=== PATIENT | female | born 1955 ===

== ENCOUNTER 2016-09-01 22:22 | Inpatient (IN) | payer MEDICARE, OTHER ==
[2016-09-01] MEDS ORDERED: Barium Sulfate Susp 2.1% w/v, 2.0% w/w 450 mL Bottle PO ONE ×3 (22:50)
--- NOTE | 2016-09-01 22:54 | ED PDOC ---
HPI: Abdomen Time Seen by Provider: 09/01/16 22:45 Chief Complaint (Nursing): Abdominal Pain History Per: Patient (Diffuse abd pain since . Denies vomiting or diarrhea. Denies fever. Seen earlier at today. H/o ESRD last dialysis ) Onset/Duration Of Symptoms: Days (2) Current Symptoms Are (Timing): Still Present Severity: Moderate Pain Scale Rating Of: 3 Location Of Pain/Discomfort: Diffuse Quality Of Discomfort: Unable To Describe Associated Symptoms: denies: Urinary Symptoms Exacerbating Factors: None Alleviating Factors: None Past Medical History Vital Signs: Last Vital Signs Temp 97.6 F 09/02/16 08:11 Pulse 55 L 09/02/16 08:11 Resp 20 09/02/16 08:11 BP 187/81 H 09/02/16 08:11 Pulse Ox 99 09/02/16 08:11 - Medical History PMH: Anemia, Anxiety, Asthma, Bipolar Disorder, Bronchitis, CHF, COPD, Depression, Diabetes, Fractures, HTN, Hypercholesterolemia, Hyperlipidemia, Peripheral Edema, Pneumonia, End Stage Renal Disease (MWF), Chronic Kidney Disease, Schizophrenia Denies: HIV - Surgical History Surgical History: Appendectomy, Hernia Repair (unknown), Tonsillectomy, C- Section - Family History Family History: States: Unknown Family Hx - Immunization History Hx Tetanus Toxoid Vaccination: No Hx Influenza Vaccination: No Hx Pneumococcal Vaccination: No - Home Medications Home Medications: Ambulatory Orders Medication Instructions Recorded Aspirin [Ecotrin] 81 mg PO DAILY tabec 08/10/16 Bisoprolol [Zebeta] 5 mg PO DAILY tab 08/10/16 Sevelamer Carbonate [Renvela] 800 mg PO TID tab 08/10/16 Zolpidem [Ambien] 5 mg PO HS PRN #0 tab 08/10/16 amLODIPine [Norvasc] 5 mg PO DAILY tab 08/10/16 hydrALAZINE [Apresoline] 25 mg PO BID tab 08/10/16 risperiDONE [RisperDAL Tab] 0.5 mg PO Q8 tab 08/10/16 Pantoprazole Sodium [Protonix] 40 mg PO DAILY 09/02/16 cloNIDine [Catapres] 0.1 mg PO DAILY 09/02/16 - Allergies Allergies/Adverse Reactions: Allergies Allergy/AdvReac Type Severity Reaction Status Date / Time ciprofloxacin [From Cipro] Allergy RASH Verified 09/01/16 17:56 ciprofloxacin HCl Allergy RASH Verified 09/01/16 17:56 [From Cipro] shellfish derived Allergy RASH Verified 09/01/16 17:56 Review of Systems ROS Statement: Except As Marked, All Systems Reviewed And Found Negative Gastrointestinal: Positive for: Abdominal Pain Physical Exam - Reviewed Nursing Documentation Reviewed: Yes Vital Signs Reviewed: Yes - Physical Exam Appears: Positive for: Non-toxic, No Acute Distress Head Exam: Positive for: ATRAUMATIC, NORMAL INSPECTION, NORMOCEPHALIC Skin: Positive for: Normal Color, Warm, DRY Eye Exam: Positive for: EOMI, Normal appearance, PERRL ENT: Positive for: Normal ENT Inspection Neck: Positive for: Normal, Painless ROM Cardiovascular/Chest: Positive for: Regular Rate, Rhythm Respiratory: Positive for: CNT, Normal Breath Sounds Gastrointestinal/Abdominal: Positive for: Bowel Sounds, Soft, Tenderness (4 quads). Negative for: Guarding Back: Positive for: Normal Inspection Extremity: Positive for: Normal ROM Neurologic/Psych: Positive for: Alert, Oriented - Laboratory Results Result Diagrams: 09/01/16 00:11 09/01/16 00:11 Disposition - Clinical Impression Clinical Impression: Abdominal pain, ESRD (end stage renal disease), Gastroparesis - Patient ED Disposition Is Patient to be Admitted: Transfer of Care - Disposition Disposition: Transfer of Care Disposition Time: 00:00 Condition: FAIR Patient Signed Over To: Phoenix Brewer
[2016-09-01 23:55] LABS: VENOUS BLOOD GAS PCO2 84 mmHg (40-60); VENOUS BLOOD PH 7.08 (7.32-7.43)
[2016-09-02 00:18] LABS: BASO # 0.1 K/uL (0.0-0.2); BASO % 0.6 % (0.0-2.0); EOS # 0.1 K/uL (0.0-0.7); EOS % 0.8 % (0.0-4.0); HEMATOCRIT 27.1 % (34.0-47.0); LYMPH # 1.4 K/uL (1.0-4.3); LYMPH % 8.5 % (20.0-40.0); MEAN CELL VOLUME 94.4 fl (81.0-99.0); MEAN CORPUSCULAR HEMOGLOBIN 29.9 pg (27.0-31.0); MEAN CORPUSCULAR HGB CONC 31.7 g/dL (33.0-37.0); MEAN PLATELET VOLUME 9.1 fl (7.2-11.7); MONO % 6.1 % (0.0-10.0); NEUT # 13.5 K/uL (1.8-7.0); PLATELET COUNT 301 K/uL (130-400); WHITE BLOOD COUNT 16.1 K/uL (4.8-10.8)
[2016-09-02 00:28] LABS: ALB/GLOB RATIO 0.9 (1.0-2.1); BILIRUBIN,TOTAL 0.4 mg/dl (0.2-1.3); CALCIUM 9.2 mg/dL (8.4-10.2); POTASSIUM 4.6 MMOL/L (3.6-5.0); TOTAL PROTEIN 7.5 G/DL (6.3-8.2)
--- NOTE | 2016-09-02 01:39 | ED PDOC ---
- Laboratory Results Result Diagrams: 09/01/16 00:11 09/01/16 00:11 Medical Decision Making Medical Decision Making: Patient received from Dr New at 00:[address] Patient reports persistent abdominal discomfort and has vomited in ED. Given hx of gatsroparesis and 2nd ED visit in same evening, she will be admitted for further treatment as d/w Dr Michaud (covering Dr Thibodeaux) Dx Abdominal Pain, Gastroparesis, ESRD Fair Disposition - Clinical Impression Clinical Impression: Abdominal pain, ESRD (end stage renal disease), Gastroparesis - POA Present On Arrival: None - Disposition Disposition: Admitted as In-Patient Disposition Time: 01:00 Condition: FAIR
[2016-09-02 02:15] LABS: BASOPHIL 1 % (0-2); NEUTROPHIL 84 % (42-75); REACTIVE LYMPHOCYTES 2 % (0-0); TOTAL CELLS COUNTED 100
[2016-09-02 02:18] LABS: LARGE PLATELETS PRESENT
[2016-09-02] MEDS ORDERED: Sodium Chloride 3% for Inhalation 4 ML VIAL.NEB IH PRN (06:24)
[2016-09-02] MEDS: Insulin Regular 100 units/ml SC SCH ×4 (08:11→21:36)
--- NOTE | 2016-09-02 10:04 | CT ---
PROCEDURE: CT Abdomen and Pelvis with Oral contrast. HISTORY: abd pain COMPARISON: 11/27/2014 TECHNIQUE: Contiguous axial images of the abdomen and pelvis. Oral contrast was administered. No IV contrast given. Coronal and Sagittal reformats generated. Radiation dose: Total exam DLP = 847 mGy-cm. FINDINGS: LOWER THORAX: Small right pleural effusion is noted, decreased from prior study. Mild subsegmental atelectasis is also seen at the right lung base. Minimal dependent atelectasis is seen at the left lung base. Minor pericardial fluid is noted. Heart is moderately enlarged. Distal esophagus is on except for small hiatal hernia. LIVER: Lack of contrast limits evaluation. No focal new liver mass or intrahepatic ductal dilatation. Minimal low density seen anterior to the liver probably represents fat and not fluid. GALLBLADDER AND BILE DUCTS: There appears to be gallbladder wall thickening and/or pericholecystic fluid representing interval change from prior study. This may suggest cholecystitis. No gallstones are seen. The common bile duct is not well appreciated due the lack of contrast although does not appear to be dilated. PANCREAS: There is some mild haziness adjacent to the head of the pancreas and the duodenum. Mild amount of pancreatitis is not excluded. No focal peripancreatic collections is noted. SPLEEN: Unremarkable. No splenomegaly. ADRENALS: Unremarkable. KIDNEYS AND URETERS: No gross hydronephrosis is seen. Moderate perinephric changes are identified bilaterally as are noted on the prior study. A number of small nonobstructing calculi or vascular calcification are once again seen ureters are not significantly dilated. There may be some mild periureteral inflammatory changes adjacent to the distal right ureter. In addition there appears to be a few small calcifications in the distal right ureter, largest of which measures 4 millimeters on axial image 147. No left ureteral calculi are seen. BLADDER: Not significantly distended. No gross bladder wall thickening or bladder calculus is noted. REPRODUCTIVE: Chronic calcification within a normal size uterus. No gross adnexal masses. There is however some mild nonspecific ascites within the pelvis. APPENDIX: Appendix not well seen, however no appreciable pericecal inflammatory changes are identified. BOWEL: There is nonspecific thickening of portions of the right colon and hepatic flexure and proximal transverse colon. This may suggest colitis. Remainder of the colon shows no evidence of wall thickening or pericolonic inflammatory change. PERITONEUM: No small bowel dilatation is seen. No mesenteric thickening is identified. LYMPH NODES: A few small scattered nonspecific retroperitoneal lymph nodes are stable from prior study. No pelvic or inguinal adenopathy is seen although a few small scattered shotty inguinal nodes are noted. VASCULATURE: Aorta is normal in size and unchanged. BONES: Degenerative changes are seen in the spine. OTHER FINDINGS: There is moderate interval decrease in previously identified anasarca. Very small umbilical hernia and minor residual subcutaneous induration is identified in the periumbilical region, nonspecific. IMPRESSION: New areas of decreased density surrounding the gallbladder suggesting gallbladder wall thickening or fluid. Cholecystitis would be suspected in the correct clinical setting. There is also the suggestion of some possible mild inflammatory change in the head of the pancreas and duodenum which may suggest mild pancreatitis. Nonspecific thickening of the ascending colon and hepatic flexure region new from prior study. Nonspecific colitis is suspected. Possible distal right ureteral calculus without hydronephrosis. Nonspecific small amount of fluid in the pelvis and cul-de-sac region. Moderate chronic perinephric changes with small bilateral renal calculi are vascular calcification noted. Stable small retroperitoneal lymph nodes. Moderate decrease in previously seen anasarca. This agrees with preliminary report.
--- NOTE | 2016-09-02 10:35 | CP.PCM.CON ---
History of Present Illness - History of Present Illness History of Present Illness: PODIATRY CONSULT NOTE 60 y/o female seen at bedside for right foot plantar ulceration secondary to Charcot deformity. Pt is know to podiatry service for this issue. Pt reports pain to the extremity recently graded 2/10 localized to the area of her ulcertion as she had increased her ambulation activity prior to readmission. Patient denies pain in her foot today, pain only manifesting with ambulation. Patient denies any other acute events overnight. She denies n/f/v/d/c/sob. Past Patient History - Infectious Disease Hx of Infectious Diseases: None - Tetanus Immunizations Tetanus Immunization: Unknown - Past Medical History & Family History Past Medical History?: Yes - Past Social History Smoking Status: Never Smoked - CARDIAC Hx Cardiac Disorders: Yes Hx Congestive Heart Failure: Yes Hx Hypercholesterolemia: Yes Hx Hypertension: Yes Hx Peripheral Edema: Yes - PULMONARY Hx Respiratory Disorders: Yes Hx Asthma: Yes Hx Bronchitis: Yes Hx Chronic Obstructive Pulmonary Disease (COPD): Yes Hx Pneumonia: Yes - NEUROLOGICAL Hx Neurological Disorder: No - HEENT Hx HEENT Problems: Yes Other/Comment: uses reading glass - RENAL Hx Chronic Kidney Disease: Yes Hx Dialysis: Yes Type of Dialysis Access: AV shunt L arm Date of Last Dialysis Treatment: 08/31/16 Hx Kidney Stones: No Hx Neurogenic Bladder: No Hx Pyelonephritis: No Hx Renal (Kidney) Cancer: No Hx Renal Failure: Yes - ENDOCRINE/METABOLIC Hx Endocrine Disorders: Yes Hx Diabetes Mellitus Type 2: Yes - HEMATOLOGICAL/ONCOLOGICAL Hx Blood Disorders: Yes Hx Anemia: Yes Hx Human Immunodeficiency Virus (HIV): No - INTEGUMENTARY Hx Dermatological Problems: Yes Other/Comment: Right foot pressure ulcer - MUSCULOSKELETAL/RHEUMATOLOGICAL Hx Musculoskeletal Disorders: Yes Hx Falls: Yes - GASTROINTESTINAL Hx Gastrointestinal Disorders: Yes Other/Comment: Gastroparesis - GENITOURINARY/GYNECOLOGICAL Hx Genitourinary Disorders: Yes Hx Urinary Tract Infection: Yes - PSYCHIATRIC Hx Psychophysiologic Disorder: Yes Hx Anxiety: Yes Hx Bipolar Disorder: Yes Hx Depression: Yes Hx Schizophrenia: Yes Hx Substance Use: No - SURGICAL HISTORY Hx Surgeries: Yes Hx Appendectomy: Yes Hx Arteriovenous Shunt: Yes Hx Section: Yes Hx Herniorrhaphy: Yes Hx Tonsillectomy: Yes Hx Vascular Access Device: Yes - ANESTHESIA Hx Anesthesia: Yes Hx Anesthesia Reactions: No Hx Malignant Hyperthermia: No Has any member of the family had a problem w/ anesthesia?: No Meds Allergies/Adverse Reactions: Allergies Allergy/AdvReac Type Severity Reaction Status Date / Time ciprofloxacin [From Cipro] Allergy RASH Verified 09/01/16 17:56 ciprofloxacin HCl Allergy RASH Verified 09/01/16 17:56 [From Cipro] shellfish derived Allergy RASH Verified 09/01/16 17:56 - Medications Medications: Current Medications Heparin Sodium (Porcine) (Heparin) 5,000 units SC Q8 ASHOK PRN Reason: Protocol Last Admin: 09/02/16 08:11 Dose: 5,000 units Piperacillin Sod/Tazobactam (Sod 2.25 gm/ Sodium Chloride) 100 mls @ 100 mls/ hr IVPB Q8 ASHOK Last Admin: 09/02/16 10:28 Dose: 100 mls/hr Insulin Human Regular (Humulin R) 0 units SC ACHS ASHOK PRN Reason: Protocol Last Admin: 09/02/16 08:11 Dose: 2 units Metoclopramide HCl (Reglan) 10 mg IVPB Q6 PRN PRN Reason: Nausea/Vomiting Mupirocin (Bactroban Ointment) 1 applic TOP DAILY [facility] Last Admin: 09/02/16 08:10 Dose: 1 applic Physical Exam - Constitutional Appears: Well, Non-toxic, No Acute Distress - Extremities Exam Additional comments: Right foot exam: Dressing clean, dry, and intact. Derm: Right plantar foot wound noted measuring 1.3cm x 1cm x 0.3cm. with hyperkeratotic maria m-wound area. No undermining, post debridement. Localized induration and edema of maria m-wound border extending 2.5 cm circumferentially. Wound base is an 50% granular to 50% fibroitic base mix, no Probe to bone, no erythema, no purulence, no malodor. No active drainage present at this time. Vascular: DP/PT pulses 1/4, CFT<3 seconds, skin temp normal Neuro: Protective sensation grossly diminished Ortho: Right plantar foot Charcot deformity with rocker bottom presentation, and plantar bony prominence - Neurological Exam Neurological exam: Alert, Oriented x3 - Psychiatric Exam Psychiatric exam: Normal Affect, Normal Mood Results - Vital Signs Recent Vital Signs: Last Vital Signs Temp 97.6 F 09/02/16 08:11 Pulse 55 L 09/02/16 08:11 Resp 20 09/02/16 08:11 BP 187/81 H 09/02/16 08:11 Pulse Ox 99 09/02/16 08:11 - Labs Result Diagrams: 09/01/16 00:11 09/01/16 00:11 Labs: Laboratory Results - last 24 hr 09/02/16 05:48 POC Glucose (mg/dL) 201 H Assessment & Plan - Assessment and Plan (Free Text) Assessment: [age] year old female with Right foot plantar ulceration secondary to Charcot deformity. Plan: Patient seen and evaluated, discussed with attending Dr. Briseno. Labs and vitals reviewed; afebrile -Aseptic sharp excision debridement of fibrotic & hyperkeratotic tissue of right foot ulceration bed totaling 3cm^2. Wound base debrided down to level of bleeding subcutaneous tissue. -Right foot dressed with Bacitracin, DSD. Ordered Silvedene cream for future dressing changes. -IV abx per primary service. Podiatry will continue to follow while patient remains in house - Date & Time Date: 09/02/16 Time: 10:40
--- NOTE | 2016-09-02 10:44 | HP ---
CHIEF COMPLAINT: Abdominal pain. HISTORY OF PRESENT ILLNESS: This is a 60-year-old female, known case of diabetes, hypertension, anxi ety, asthma, bipolar disorder, CHF, COPD, depression, Charcot joint, elevated cholesterol and chronic foot ulcer, end-stage renal disease on dialysis and schizophrenia, who was having abdominal pain, fo r which patient went to Emergency Room at [facility] and was discharged, but patient continued h aving problem and was not able to hold any food down, was having vomiting and also patient felt very weak, so patient was brought to Emergency Room and was admitted for further management. REVIEW OF SYSTEMS: Positive for abdominal pain, nausea, vomiting and generalized body ache and gener alized weakness. Otherwise is negative for headache, dizziness, syncope, loss of consciousness, ches t pain, shortness of breath, any knee joint or extremity pain. All other organ systems unremarkable. PAST MEDICAL HISTORY: Significant for diabetes, hypertension, elevated cholesterol, bronchial asthma , bipolar disorder, schizophrenia, CHF, COPD, depression. PAST SURGICAL HISTORY: Unremarkable except appendectomy, hernia repair, tonsillectomy, dialysis rela valerie procedure and section. PERSONAL HISTORY: The patient is currently a nonsmoker, nondrinker, no substance abuse. MEDICATIONS: The patient is on multiple including Zemplar, Ecotrin, Dulcolax, Zebeta, Colace, Lexapr o, Protonix, Renvela, Ambien, Norvasc, Catapres, hydralazine, Risperdal. ALLERGIES: THE PATIENT IS ALLERGIC TO CIPRO AND SHELLFISH. FAMILY HISTORY: Noncontributory. PHYSICAL EXAMINATION: GENERAL: Well-built, well-nourished, overweight, 60-year-old female, in no acute distress. VITAL SIGNS: Temperature 97.6, pulse 55, respirations 18, blood pressure 187/81. HEENT: Pupils reacting to light. No JVD, no thyromegaly, no lymphadenopathy, no nystagmus. Normoce phalic, atraumatic skull. HEART: S1, S2 normal, regular. No significant murmur, gallop or rub is heard. LUNGS: Shows good bilateral air entry. No rales or rhonchi. ABDOMEN: Soft, nontender, no organomegaly, no fluid. Bowel sounds are plus. No sign of acute abdom en. No guarding, no rigidity, no rebound. EXTREMITIES: Right lower extremity, patient has a big chronic looking plantar sole, which seems to b e deep than it appears externally. There is no tenderness due to neuropathy, no clear sign of cellul itis outside. No edema, no calf swelling, no tenderness, no acute ischemia. CENTRAL NERVOUS SYSTEM: The patient is awake, responsive. There is no sign of any acute gross focal , motor or sensory neurological deficit. DIAGNOSTIC DATA: Available reviewed. WBC 16.1, hemoglobin 8.6, hematocrit 27.1, platelets 301. Jose Guadalupe ous blood gas is pH 7.08, pCO2 84, pO2 44, saturation is 68. Sodium , potassium 4.6, chloride 9 4, bicarbonate 26, BUN 38, creatinine . SMA-12 is unremarkable. Abdominal CAT scan is unremark able. EKG does not reveal acute ST-T changes. ADMITTING IMPRESSION: Abdominal pain, probably gastroparesis, infected right foot ulcer, cellulitis, rule out osteomyelitis, type 2 diabetes with hyperglycemia, hypertension, systolic congestive heart failure, chronic, chronic obstructive pulmonary disease, bronchial asthma, depression, bipolar disord er, schizophrenia. PLAN: As ordered. Case and plan discussed with patient. Thierno Michaud MD cc: [id number] TT: 09/02/2016 10:43:16 en
--- NOTE | 2016-09-02 13:37 | CP.PCM.CON ---
<Carri Chen - Last Filed: 09/02/16 13:50> History of Present Illness - History of Present Illness History of Present Illness: Gastroenterology Fellow/PGY4 Consult Note 60 year old female with history of Hypertension, Hyperlipidemia, ESRD on HD MWF , and right foot plantar ulceration secondary to Charcot deformity presenting with syncope and abdominal pain. Patient ang family endorse ER visit yesterday with diagnosis of constipation and discharge home. Upon walking into the home the patient fainted and was caught by family before hitting the floor. She states that upon awakening yesterday she weak and had mid epigastric, constant pain without radiation, pain scale 7/10. She associates five episodes of clear- white liquid vomitus. She ate a hamburger prior to onset of first episode of vomiting. Associated dysphagia and odynophagia. Recent Gastric emptying study normal. Had tolerated regular diet during last admission. At present tolerate clear liquid diet without recurrent vomiting. Denies hematemesis, acid reflux, indigestion, heartburn, bloating, diarrhea, melena, hematochezia, or weight loss. No prior EGD /colonoscopy. Family- brother: Throat cancer Social- denies tobacco, alcohol, illicit drug use Surgery- hernia repair, , tonsillectomy, appendectomy Review of Systems - Review of Systems Review of Systems: A 12-point review of systems negative except for as above Past Patient History - Infectious Disease Hx of Infectious Diseases: None - Tetanus Immunizations Tetanus Immunization: Unknown - Past Medical History & Family History Past Medical History?: Yes - Past Social History Smoking Status: Never Smoked - CARDIAC Hx Cardiac Disorders: Yes Hx Congestive Heart Failure: Yes Hx Hypercholesterolemia: Yes Hx Hypertension: Yes Hx Peripheral Edema: Yes - PULMONARY Hx Respiratory Disorders: Yes Hx Asthma: Yes Hx Bronchitis: Yes Hx Chronic Obstructive Pulmonary Disease (COPD): Yes Hx Pneumonia: Yes - NEUROLOGICAL Hx Neurological Disorder: No - HEENT Hx HEENT Problems: Yes Other/Comment: uses reading glass - RENAL Hx Chronic Kidney Disease: Yes Hx Dialysis: Yes Type of Dialysis Access: AV shunt L arm Date of Last Dialysis Treatment: 08/31/16 Hx Kidney Stones: No Hx Neurogenic Bladder: No Hx Pyelonephritis: No Hx Renal (Kidney) Cancer: No Hx Renal Failure: Yes - ENDOCRINE/METABOLIC Hx Endocrine Disorders: Yes Hx Diabetes Mellitus Type 2: Yes - HEMATOLOGICAL/ONCOLOGICAL Hx Blood Disorders: Yes Hx Anemia: Yes Hx Human Immunodeficiency Virus (HIV): No - INTEGUMENTARY Hx Dermatological Problems: Yes Other/Comment: Right foot pressure ulcer - MUSCULOSKELETAL/RHEUMATOLOGICAL Hx Musculoskeletal Disorders: Yes Hx Falls: Yes - GASTROINTESTINAL Hx Gastrointestinal Disorders: Yes Other/Comment: Gastroparesis - GENITOURINARY/GYNECOLOGICAL Hx Genitourinary Disorders: Yes Hx Urinary Tract Infection: Yes - PSYCHIATRIC Hx Psychophysiologic Disorder: Yes Hx Anxiety: Yes Hx Bipolar Disorder: Yes Hx Depression: Yes Hx Schizophrenia: Yes Hx Substance Use: No - SURGICAL HISTORY Hx Surgeries: Yes Hx Appendectomy: Yes Hx Arteriovenous Shunt: Yes Hx Section: Yes Hx Herniorrhaphy: Yes Hx Tonsillectomy: Yes Hx Vascular Access Device: Yes - ANESTHESIA Hx Anesthesia: Yes Hx Anesthesia Reactions: No Hx Malignant Hyperthermia: No Has any member of the family had a problem w/ anesthesia?: No Meds Allergies/Adverse Reactions: Allergies Allergy/AdvReac Type Severity Reaction Status Date / Time ciprofloxacin [From Cipro] Allergy RASH Verified 09/01/16 17:56 ciprofloxacin HCl Allergy RASH Verified 09/01/16 17:56 [From Cipro] shellfish derived Allergy RASH Verified 09/01/16 17:56 - Medications Medications: Current Medications Heparin Sodium (Porcine) (Heparin) 5,000 units SC Q8 [facility] PRN Reason: Protocol Last Admin: 09/02/16 08:11 Dose: 5,000 units Piperacillin Sod/Tazobactam (Sod 2.25 gm/ Sodium Chloride) 100 mls @ 100 mls/ hr IVPB Q8 [facility] Last Admin: 09/02/16 10:28 Dose: 100 mls/hr Insulin Human Regular (Humulin R) 0 units SC ACHS [facility] PRN Reason: Protocol Last Admin: 09/02/16 12:28 Dose: 2 units Metoclopramide HCl (Reglan) 10 mg IVPB Q6 PRN PRN Reason: Nausea/Vomiting Last Admin: 09/02/16 13:25 Dose: 10 mg Mupirocin (Bactroban Ointment) 1 applic TOP DAILY [facility] Last Admin: 09/02/16 08:10 Dose: 1 applic Physical Exam - Constitutional Appears: Non-toxic, No Acute Distress - Head Exam Head Exam: ATRAUMATIC, NORMOCEPHALIC - Eye Exam Eye Exam: EOMI Pupil Exam: absent: Miosis, Mydriatic - ENT Exam ENT Exam: Mucous Membranes Moist, Normal Oropharynx - Neck Exam Neck exam: Positive for: Full Rom, Normal Inspection - Respiratory Exam Respiratory Exam: Clear to Auscultation Bilateral, Rales. absent: Rhonchi, Wheezes - Cardiovascular Exam Cardiovascular Exam: RRR, +S1, +S2. absent: Gallop, Rubs - GI/Abdominal Exam GI & Abdominal Exam: Normal Bowel Sounds, Organomegaly, Soft, Tenderness. absent: Distended, Firm, Rebound, Rigid - Extremities Exam Extremities exam: Positive for: pedal edema - Neurological Exam Neurological exam: Alert - Psychiatric Exam Psychiatric exam: Normal Affect, Normal Mood - Skin Skin Exam: Dry, Intact, Normal Color, Warm Results - Vital Signs Recent Vital Signs: Last Vital Signs Temp 97.6 F 09/02/16 08:11 Pulse 55 L 09/02/16 08:11 Resp 20 09/02/16 08:11 BP 187/81 H 09/02/16 08:11 Pulse Ox 99 09/02/16 08:11 - Labs Result Diagrams: 09/01/16 00:11 09/01/16 00:11 Labs: Laboratory Results - last 24 hr 09/02/16 09/02/16 09/02/16 05:48 09:45 10:36 APTT 29.9 POC Glucose (mg/dL) 201 H 208 H Assessment & Plan - Assessment and Plan (Free Text) Assessment: 60 year old female with history of Hypertension, Hyperlipidemia, ESRD on HD MWF , recurrent UTIs, and right foot plantar ulceration secondary to Charcot deformity presenting with syncope and abdominal pain. Recent gastric emptying study 08/[address] A/P showing nonspecific thickening of gallbladder with pericholecystic fluid, duodenum, and transverse colon. No prior EGD /colonoscopy. Plan: >U/A- recurrent UTI >continue antibiotic treatment >tolerating clear liquid diet >ordered Hepatitis panel to evaluate LFTs >if recurrent vomiting or dysphagia/odynophagia will consider future endoscopic evaluation >monitor LFTs, WBC, and fever curve for concern of acalculous cholecytitis and mild pancreatitis on CT imaging >further recommendations as follow clinical course <Bg Fay MD - Last Filed: 09/02/16 14:06> Meds - Medications Medications: Current Medications Heparin Sodium (Porcine) (Heparin) 5,000 units SC Q8 [facility] PRN Reason: Protocol Last Admin: 09/02/16 08:11 Dose: 5,000 units Piperacillin Sod/Tazobactam (Sod 2.25 gm/ Sodium Chloride) 100 mls @ 100 mls/ hr IVPB Q8 [facility] Last Admin: 09/02/16 10:28 Dose: 100 mls/hr Insulin Human Regular (Humulin R) 0 units SC ACHS [facility] PRN Reason: Protocol Last Admin: 09/02/16 12:28 Dose: 2 units Metoclopramide HCl (Reglan) 10 mg IVPB Q6 PRN PRN Reason: Nausea/Vomiting Last Admin: 09/02/16 13:25 Dose: 10 mg Mupirocin (Bactroban Ointment) 1 applic TOP DAILY [facility] Last Admin: 09/02/16 08:10 Dose: 1 applic Results - Vital Signs Recent Vital Signs: Last Vital Signs Temp 97.6 F 09/02/16 08:11 Pulse 55 L 09/02/16 08:11 Resp 20 09/02/16 08:11 BP 187/81 H 09/02/16 08:11 Pulse Ox 99 09/02/16 08:11 - Labs Result Diagrams: 09/01/16 00:11 09/01/16 00:11 Labs: Laboratory Results - last 24 hr 09/02/16 09/02/16 09/02/16 05:48 09:45 10:36 APTT 29.9 POC Glucose (mg/dL) 201 H 208 H Attending/Attestation - Attestation I have personally seen and examined this patient.: Yes I have fully participated in the care of the patient.: Yes I have reviewed all pertinent clinical information: Yes Notes (Text): 09/02/16 14:03 Patient seen and examined at bedside with GI fellow. This is a 60 year old female with history of Hypertension, Hyperlipidemia, ESRD on HD MWF, recurrent UTIs, and right foot plantar ulceration secondary to Charcot deformity presenting with syncope and abdominal pain. Recent gastric emptying study 08/14 without gastroparesis. Abdominal pain likely multi factorial. CT A/P showing nonspecific thickening of gallbladder with pericholecystic fluid, duodenum, and transverse colon. U/A with UTI pending urine cultures. Will trend LFT, fever and wbc curve and continue antibiotics for UTI and acalculous GB. Tolerating clear liquid diet. Advance as tolerated. Daily PPI. Continue reglan prn
[2016-09-02] MEDS: Pantoprazole 40 mg EC Tab PO SCH (16:23)
[2016-09-03] MEDS: Insulin Regular 100 units/ml SC SCH ×4 (08:10→22:00)
[2016-09-03] MEDS: Pantoprazole 40 mg EC Tab PO SCH (08:11)
--- NOTE | 2016-09-03 09:39 | CARD ---
APPROVED REPORT EKG Measurement Heart [id number] <Conclusion> Sinus bradycardia Right superior axis deviation Anterior infarct, age undetermined Abnormal ECG
[2016-09-03 11:56] LABS: POTASSIUM 5.9 MMOL/L (3.6-5.0)
[2016-09-03 11:58] LABS: BILIRUBIN,TOTAL 0.6 mg/dl (0.2-1.3)
[2016-09-03 11:59] LABS: CALCIUM 8.7 mg/dL (8.4-10.2); TOTAL PROTEIN 7.1 G/DL (6.3-8.2)
[2016-09-03 12:12] LABS: BASO # 0.1 K/uL (0.0-0.2); BASO % 0.8 % (0.0-2.0); EOS # 0.2 K/uL (0.0-0.7); EOS % 1.9 % (0.0-4.0); HEMATOCRIT 29.5 % (34.0-47.0); LYMPH # 1.6 K/uL (1.0-4.3); LYMPH % 14.5 % (20.0-40.0); MEAN CELL VOLUME 95.1 fl (81.0-99.0); MEAN CORPUSCULAR HEMOGLOBIN 30.6 pg (27.0-31.0); MEAN CORPUSCULAR HGB CONC 32.2 g/dL (33.0-37.0); MONO # 0.7 K/uL (0.0-0.8); MONO % 6.4 % (0.0-10.0); NEUT # 8.3 K/uL (1.8-7.0); NEUT % 76.4 % (50.0-75.0); NRBC % 0.1 % (0.0-0.0); RED CELL DISTRIBUTION WIDTH 16.7 % (11.5-14.5); WHITE BLOOD COUNT 10.9 K/uL (4.8-10.8)
[2016-09-03] MEDS ORDERED: Sod Polystyrene Sulf 15 gm/60 ml Oral Susp PO ONE (12:28)
[2016-09-03] MEDS ORDERED: Epoetin Alfa 20000 UNIT/ML (RENAL DOSE) IV SCH (15:00)
[2016-09-03] MEDS ORDERED: Doxercalciferol 4 mcg/2 ml Inj IV SCH (15:00)
--- NOTE | 2016-09-03 17:35 | CP.PCM.PN ---
<Migel Russo - Last Filed: 09/03/16 17:33> Subjective - Date & Time of Evaluation Date of Evaluation: 09/03/16 Time of Evaluation: 12:00 - Subjective Subjective: PGY4 GI Fellow Progress Note Patient seen and examined bedside this morning. The patient admits to feeling much better today and is eager to eat more. Requesting regular diet. No issues overnight. 12 system ROS performed and negative except where stated. Objective - Vital Signs/Intake and Output Vital Signs (last 24 hours): Temp Pulse Resp BP Pulse Ox 97.4 F L 58 L 20 133/70 93 L 09/03/16 07:55 09/03/16 07:55 09/03/16 07:55 09/03/16 07:55 09/03/16 07:55 - Medications Medications: Current Medications Amlodipine Besylate (Norvasc) 5 mg PO DAILY [facility] Last Admin: 09/03/16 08:11 Dose: Not Given Aspirin (Ecotrin) 81 mg PO DAILY [facility] Last Admin: 09/03/16 08:10 Dose: 81 mg Bisoprolol Fumarate (Zebeta) 5 mg PO DAILY [facility] Last Admin: 09/03/16 08:12 Dose: Not Given Clonidine HCl (Catapres) 0.1 mg PO DAILY [facility] Last Admin: 09/03/16 08:09 Dose: Not Given Doxercalciferol (Hectorol) 2 mcg IV F [facility] Stop: 09/10/16 23:59 Epoetin Isreal (Procrit) 10,000 unit IV MWF [facility] Stop: 09/10/16 23:59 Heparin Sodium (Porcine) (Heparin) 5,000 units SC Q8 [facility] PRN Reason: Protocol Last Admin: 09/03/16 08:08 Dose: 5,000 units Hydralazine HCl (Apresoline) 25 mg PO BID [facility] Last Admin: 09/03/16 08:09 Dose: Not Given Piperacillin Sod/Tazobactam (Sod 2.25 gm/ Sodium Chloride) 100 mls @ 100 mls/ hr IVPB Q8 [facility] Last Admin: 09/03/16 08:12 Dose: 100 mls/hr Insulin Human Regular (Humulin R) 0 units SC ACHS [facility] PRN Reason: Protocol Last Admin: 09/03/16 12:12 Dose: 2 units Metoclopramide HCl (Reglan) 10 mg IVPB Q6 PRN PRN Reason: Nausea/Vomiting Last Admin: 09/03/16 09:03 Dose: 10 mg Mupirocin (Bactroban Ointment) 1 applic TOP DAILY [facility] Last Admin: 09/03/16 08:09 Dose: 1 applic Pantoprazole Sodium (Protonix Ec Tab) 40 mg PO DAILY [facility] Last Admin: 09/03/16 08:11 Dose: 40 mg Risperidone (Risperdal Tab) 0.5 mg PO Q8 [facility] Last Admin: 09/03/16 08:10 Dose: 0.5 mg Sevelamer HCl (Renagel) 800 mg PO TID [facility] Last Admin: 09/03/16 12:18 Dose: Not Given Zolpidem Tartrate (Ambien) 5 mg PO HS PRN PRN Reason: Insomnia - Labs Labs: 09/03/16 11:30 09/03/16 11:30 APTT 29.9 SECONDS (23.3-32.5) 09/02/16 09:45 - Constitutional Appears: Non-toxic, No Acute Distress - Eye Exam Eye Exam: EOMI, PERRL - ENT Exam ENT Exam: Mucous Membranes Moist - Respiratory Exam Respiratory Exam: Clear to Ausculation Bilateral. absent: Rales, Rhonchi, Wheezes - Cardiovascular Exam Cardiovascular Exam: RRR, +S1, +S2 - GI/Abdominal Exam GI & Abdominal Exam: Soft, Normal Bowel Sounds. absent: Distended, Firm, Guarding, Rigid, Tenderness, Organomegaly - Extremities Exam Extremities Exam: absent: Pedal Edema Additional comments: right foot wound dressing changed - Neurological Exam Neurological Exam: Alert, Awake, Oriented x3 - Psychiatric Exam Psychiatric exam: Normal Affect, Normal Mood - Skin Skin Exam: Dry, Warm Assessment and Plan - Assessment and Plan (Free Text) Assessment: 60 year old female with history of Hypertension, Hyperlipidemia, ESRD on HD MWF , recurrent UTIs, and right foot plantar ulceration secondary to Charcot deformity presenting with syncope and abdominal pain. -Epigastric pain -Nausea and vomiting Plan: -Suspect abdominal pain related to recurrent UTI -Tolerating diet, advance as tolerated -Hepatitis serologies pending -Asymptomatic at present; will sign off. Thank you for allowing us to participate in the care of your patient. <Bg Fay MD - Last Filed: 09/03/16 20:22> Objective - Vital Signs/Intake and Output Vital Signs (last 24 hours): Temp Pulse Resp BP Pulse Ox 97.4 F L 58 L 20 133/70 93 L 09/03/16 07:55 09/03/16 07:55 09/03/16 07:55 09/03/16 07:55 09/03/16 07:55 - Medications Medications: Current Medications Amlodipine Besylate (Norvasc) 5 mg PO DAILY [facility] Last Admin: 09/03/16 08:11 Dose: Not Given Aspirin (Ecotrin) 81 mg PO DAILY [facility] Last Admin: 09/03/16 08:10 Dose: 81 mg Bisoprolol Fumarate (Zebeta) 5 mg PO DAILY [facility] Last Admin: 09/03/16 08:12 Dose: Not Given Clonidine HCl (Catapres) 0.1 mg PO DAILY [facility] Last Admin: 09/03/16 08:09 Dose: Not Given Doxercalciferol (Hectorol) 2 mcg IV [facility] Epoetin Isreal (Procrit) 10,000 unit IV [facility] Stop: 09/10/16 23:59 Heparin Sodium (Porcine) (Heparin) 5,000 units SC Q8 [facility] PRN Reason: Protocol Last Admin: 09/03/16 18:32 Dose: 5,000 units Hydralazine HCl (Apresoline) 25 mg PO BID [facility] Last Admin: 09/03/16 18:31 Dose: Not Given Piperacillin Sod/Tazobactam (Sod 2.25 gm/ Sodium Chloride) 100 mls @ 100 mls/ hr IVPB Q8 [facility] Last Admin: 09/03/16 17:40 Dose: 100 mls/hr Insulin Human Regular (Humulin R) 0 units SC ACHS [facility] PRN Reason: Protocol Last Admin: 09/03/16 18:34 Dose: Not Given Metoclopramide HCl (Reglan) 10 mg IVPB Q6 PRN PRN Reason: Nausea/Vomiting Last Admin: 09/03/16 09:03 Dose: 10 mg Mupirocin (Bactroban Ointment) 1 applic TOP DAILY [facility] Last Admin: 09/03/16 08:09 Dose: 1 applic Pantoprazole Sodium (Protonix Ec Tab) 40 mg PO DAILY [facility] Last Admin: 09/03/16 08:11 Dose: 40 mg Risperidone (Risperdal Tab) 0.5 mg PO Q8 [facility] Last Admin: 09/03/16 18:35 Dose: Not Given Sevelamer HCl (Renagel) 800 mg PO TID [facility] Last Admin: 09/03/16 18:34 Dose: Not Given Zolpidem Tartrate (Ambien) 5 mg PO HS PRN PRN Reason: Insomnia - Labs Labs: 09/03/16 11:30 09/03/16 11:30 APTT 29.9 SECONDS (23.3-32.5) 09/02/16 09:45 Attending/Attestation - Attestation I have personally seen and examined this patient.: Yes I have fully participated in the care of the patient.: Yes I have reviewed all pertinent clinical information, including history, physical exam and plan: Yes Notes (Text): 09/03/16 20:20 patient seen and examined with GI fellow on rounds. This is a 60 year old female with history of Hypertension, Hyperlipidemia, ESRD on HD MWF, recurrent UTIs, and right foot plantar ulceration secondary to Charcot deformity presenting with syncope and abdominal pain. Abdominal pain likely due to recurrent UTI now resolving. Tolerating diet on PPI, carafate. -Asymptomatic at present; will sign off. Thank you for allowing us to participate in the care of your patient.
--- NOTE | 2016-09-03 20:05 | CP.PCM.PN ---
Subjective - Date & Time of Evaluation Date of Evaluation: 09/03/16 Time of Evaluation: 20:04 - Subjective Subjective: pt seen and examined, follow up consult is dictated #[id number] s/p hd today Objective - Vital Signs/Intake and Output Vital Signs (last 24 hours): Temp Pulse Resp BP Pulse Ox 97.4 F L 58 L 20 133/70 93 L 09/03/16 07:55 09/03/16 07:55 09/03/16 07:55 09/03/16 07:55 09/03/16 07:55 - Medications Medications: Current Medications Amlodipine Besylate (Norvasc) 5 mg PO DAILY [facility] Last Admin: 09/03/16 08:11 Dose: Not Given Aspirin (Ecotrin) 81 mg PO DAILY [facility] Last Admin: 09/03/16 08:10 Dose: 81 mg Bisoprolol Fumarate (Zebeta) 5 mg PO DAILY [facility] Last Admin: 09/03/16 08:12 Dose: Not Given Clonidine HCl (Catapres) 0.1 mg PO DAILY [facility] Last Admin: 09/03/16 08:09 Dose: Not Given Doxercalciferol (Hectorol) 2 mcg IV [facility] Epoetin Isreal (Procrit) 10,000 unit IV MWF [facility] Stop: 09/10/16 23:59 Heparin Sodium (Porcine) (Heparin) 5,000 units SC Q8 [facility] PRN Reason: Protocol Last Admin: 09/03/16 18:32 Dose: 5,000 units Hydralazine HCl (Apresoline) 25 mg PO BID [facility] Last Admin: 09/03/16 18:31 Dose: Not Given Piperacillin Sod/Tazobactam (Sod 2.25 gm/ Sodium Chloride) 100 mls @ 100 mls/ hr IVPB Q8 [facility] Last Admin: 09/03/16 17:40 Dose: 100 mls/hr Insulin Human Regular (Humulin R) 0 units SC ACHS [facility] PRN Reason: Protocol Last Admin: 09/03/16 18:34 Dose: Not Given Metoclopramide HCl (Reglan) 10 mg IVPB Q6 PRN PRN Reason: Nausea/Vomiting Last Admin: 09/03/16 09:03 Dose: 10 mg Mupirocin (Bactroban Ointment) 1 applic TOP DAILY [facility] Last Admin: 09/03/16 08:09 Dose: 1 applic Pantoprazole Sodium (Protonix Ec Tab) 40 mg PO DAILY [facility] Last Admin: 09/03/16 08:11 Dose: 40 mg Risperidone (Risperdal Tab) 0.5 mg PO Q8 [facility] Last Admin: 09/03/16 18:35 Dose: Not Given Sevelamer HCl (Renagel) 800 mg PO TID [facility] Last Admin: 09/03/16 18:34 Dose: Not Given Zolpidem Tartrate (Ambien) 5 mg PO HS PRN PRN Reason: Insomnia - Labs Labs: 09/03/16 11:30 09/03/16 11:30 APTT 29.9 SECONDS (23.3-32.5) 09/02/16 09:45
--- NOTE | 2016-09-03 20:49 | PN ---
DATE: 09/03/2016 The patient is located in room 655, bed 2. REQUESTED BY: Dr. Thierno Michaud. REASON FOR FOLLOWUP: End-stage renal disease, abdominal pain, possible urosepsis , for continuation of hemodialysis. HISTORY OF PRESENT ILLNESS: The patient is a 60-year-old elderly female with a past medical history significant for longstanding hypertension, diabetes, end-stage renal disease, psych disorder and Charcot's foot on the right lower extremity, recurrent urinary tract infection, sepsis, who was admitted about a week ago to [facility] for possible UTI. Subsequently discharged home. Now patient was admitted through the Emergency Room with chief complaints of nausea, vomiting x 5 and passed out in the house, and also complains of lower abdominal pain, dysuria and frequency. The urine culture is positive for gram-negative rods. The patient underwent hemodialysis this afternoon and had ultrafiltration about 2.5 liters, tolerating hemodialysis without any complications. The patient is feeling much better, not in acute distress. Denies any headache, dizziness. Denies any chest pain, palpitation. No nausea, vomiting today. PHYSICAL EXAMINATION: VITAL SIGNS: As follows: Blood pressure 133/70, pulse 58, respirations 20, temperature 97.4, saturation 93%. Height 5 feet 3 inches and weight is 162 pounds. GENERAL: The patient is a 60-year-old elderly female, moderately built , moderately nourished, not in acute distress. HEENT: Pupils normal reactive to light and accommodation. Conjunctivae pink. Sclerae anicteric. Tongue is moist. NECK: Trachea is midline. LUNGS: Symmetric on both sides. Bilateral breath sounds present. Clear on auscultation. CARDIOVASCULAR: [place] in the fifth intercostal space midclavicular line. S1 and S2 audible. No murmur or gallop. ABDOMEN: Normal in appearance. Soft, tympanic. Mild to moderate lower abdominal tenderness present, suprapubic. No guarding, no rigidity. No hepatosplenomegaly. CENTRAL NERVOUS SYSTEM: The patient is alert, awake, oriented x 3, nonfocal on examination. Cranial nerves II through XII grossly intact. Sensory and motor system is within normal limits. EXTREMITIES: No cyanosis, no clubbing, no edema. Right foot is swollen. The patient has a dressing to the right foot. CURRENT MEDICATIONS: Include as follows: Ambien 5 mg at bedtime, hydralazine 25 mg p.o. b.i.d., Bactroban ointment topical daily, Catapres 0.1 mg p.o. daily , Ecotrin 81 mg p.o. daily, Hectorol 2 mcg IV MWF, subcutaneous heparin 5000 q. 8 hours, milrinone for sliding scale, Norvasc 5 mg daily, Zosyn 2.25 grams IV q. 8 hours, Procrit 10,000 units MWF, Protonix 40 mg subQ daily, Reglan 10 mg IV q. 6 hours, Renagel 800 mg p.o. t.i.d., Risperdal 0.5 mg p.o. q. 8 hours, Zebeta 5 mg p.o. daily. LABORATORY DATA: Include as follows: As of 09/03/2016: WBC 10.9, hemoglobin 9.5, hematocrit is 29.5, platelets 283. Sodium 130, potassium 5.9, chloride 94 , CO2 21, BUN 50, creatinine 6.7 and glucose 205, calcium 8.5, total bilirubin 0.6, AST 31, ALT 36, alkaline phosphatase 260, total protein 7.1, albumin is 3.5. As of 09/01/2016: WBC 16.1, hemoglobin 8.6, hematocrit is 27.1, platelets 301. Neutrophils 84, lymphocytes 7, monocytes 6, and basophils 1. Blood culture x 1 is negative day #1 and urine culture positive for gram-negative rods , identification is pending as of 09/01/2016. SUMMARY: The patient is a 60-year-old elderly female with a history of hypertension, diabetes, recurrent urinary tract infections, questionable neurogenic bladder, Charcot's foot, end-stage renal disease, status post treatment for urinary tract infection, was admitted with nausea, vomiting, abdominal pain, and urine culture is positive for gram-negative rods. 1. End-stage renal disease. Continue hemodialysis 3 times a week, Saturday, Saturday and Saturday. 2. Hyperkalemia, most likely secondary to end-stage renal disease and noncompliance with medication. 3. Urinary tract infection. 4. Hypertension. Blood pressure is stable. Continue her current medications and follow up urine culture and sensitivity and adjust antibiotics as per PMD. Thank you for allowing me to participate in your patient's care. Lnida Bernal MD cc: [id number] TT: 09/03/2016 20:48:44 Confirmation # [id number] Dictation # [id number] rn MTDD
[2016-09-04] MEDS: Insulin Regular 100 units/ml SC SCH ×4 (06:51→22:02)
[2016-09-04] MEDS: Pantoprazole 40 mg EC Tab PO SCH (09:09)
--- NOTE | 2016-09-04 11:05 | US ---
HISTORY: Abdominal pain, ? cholecystitis COMPARISON: None. TECHNIQUE: Sonographic evaluation of the abdomen. FINDINGS: LIVER: Measures 17.8 cm. Normal echogenicity of the liver parenchyma. No mass. No intrahepatic bile duct dilatation. GALLBLADDER: No cholelithiasis. Mild diffuse mural thickening up to 4 mm. Minimal pericholecystic fluid common nonspecific. Negative sonographic Roe's sign. COMMON BILE DUCT: Measures 4 mm. No stones. No dilatation. PANCREAS: Unremarkable as visualized. No mass. No ductal dilatation. RIGHT KIDNEY: Measures 10.5cm. Normal echogenicity. No calculus, mass, or hydronephrosis. LEFT KIDNEY: Measures 10.3cm. Normal echogenicity. No calculus, mass, or hydronephrosis. SPLEEN: Normal in size and contour. No mass. AORTA: No aneurysmal dilatation. IVC: Unremarkable. OTHER FINDINGS: The small right pleural effusion. Trace pericardial effusion. IMPRESSION: Minimal hepatomegaly. Nonspecific thickening of gallbladder wall without evidence of cholelithiasis. Trace ascites. Right pleural effusion and minimal pericardial effusion.
--- NOTE | 2016-09-04 11:05 | PN ---
DATE: 09/04/2016 The patient seen and examined. Interim events noted. Consults noted and appreciated. The patient r emains on regular medical floor. The patient feels a little better, but still complains of generaliz ed weakness. No chest pain, shortness of breath or abdominal pain. The patient vomiting after eating yesterday, but otherwise patient tolerated diet. PHYSICAL EXAMINATION: GENERAL: The patient is in no acute distress. VITAL SIGNS: Stable. HEART: S1, S2 normal, regular. LUNGS: Good bilateral air exchange. ABDOMEN: Soft, nontender. There is no sign of acute abdomen. No guarding, no rigidity, no rebound. Bowel sounds are plus and normal. EXTREMITIES: No edema, no calf swelling, no tenderness, no acute . CENTRAL NERVOUS SYSTEM: Exam is essentially unchanged. DIAGNOSTIC DATA: Available diagnostic data reviewed. Overall, patient's general condition seems to be slowly improving. PLAN: As ordered. Thierno Michaud MD cc: [id number] TT: 09/04/2016 11:04:36 Confirmation # [id number] Dictation # [id number] tereso
[2016-09-04 12:00] LABS: HEMATOCRIT 28.5 % (34.0-47.0); MEAN CELL VOLUME 95.5 fl (81.0-99.0); MEAN CORPUSCULAR HEMOGLOBIN 29.6 pg (27.0-31.0); RED CELL DISTRIBUTION WIDTH 16.8 % (11.5-14.5); WHITE BLOOD COUNT 12.5 K/uL (4.8-10.8)
[2016-09-04 12:06] LABS: BILIRUBIN,TOTAL 0.6 mg/dl (0.2-1.3); CALCIUM 8.8 mg/dL (8.4-10.2); POTASSIUM 4.5 MMOL/L (3.6-5.0)
[2016-09-05] MEDS: Insulin Regular 100 units/ml SC SCH ×4 (07:55→22:00)
[2016-09-05 08:00] LABS: HEMATOCRIT 27.2 % (34.0-47.0); MEAN CELL VOLUME 94.8 fl (81.0-99.0); MEAN CORPUSCULAR HEMOGLOBIN 29.6 pg (27.0-31.0); MEAN CORPUSCULAR HGB CONC 31.2 g/dL (33.0-37.0); RED CELL DISTRIBUTION WIDTH 16.8 % (11.5-14.5); WHITE BLOOD COUNT 14.2 K/uL (4.8-10.8)
[2016-09-05 08:11] LABS: CALCIUM 8.8 mg/dL (8.4-10.2); POTASSIUM 4.7 MMOL/L (3.6-5.0)
[2016-09-05] MEDS ORDERED: EPOETIN ALFA 10,000 UNIT/ML ML IV SCH (09:00)
--- NOTE | 2016-09-05 09:04 | CP.PCM.PN ---
Subjective - Date & Time of Evaluation Date of Evaluation: 09/05/16 Time of Evaluation: 08:00 - Subjective Subjective: 60 y/o female seen at bedside this morning concerning right foot plantar ulceration secondary to Charcot deformity. Patient was resting comfortably in bed with no report of acute overnight distress. Dressing to Right foot remains clean, dry and intact. Patient denies any other acute events overnight. Patient states that she feels mild pain to the site of ulceration. She denies n/f/v/d/c/ sob. Objective - Vital Signs/Intake and Output Vital Signs (last 24 hours): Temp Pulse Resp BP Pulse Ox 98.1 F 62 20 151/80 H 100 09/05/16 07:54 09/05/16 07:54 09/05/16 07:54 09/05/16 07:54 09/05/16 07:54 - Medications Medications: Current Medications Amlodipine Besylate (Norvasc) 5 mg PO DAILY [facility] Last Admin: 09/04/16 09:10 Dose: 5 mg Aspirin (Ecotrin) 81 mg PO DAILY [facility] Last Admin: 09/04/16 09:08 Dose: 81 mg Bisoprolol Fumarate (Zebeta) 5 mg PO DAILY [facility] Last Admin: 09/04/16 09:08 Dose: 5 mg Clonidine HCl (Catapres) 0.1 mg PO DAILY [facility] Last Admin: 09/04/16 09:00 Dose: 0.1 mg Doxercalciferol (Hectorol) [address] [facility] Epoetin Isreal (Procrit) 10,000 unit IV F [facility] Stop: 09/10/16 23:59 Ferrous Sulfate (Feosol) 325 mg PO BIDWM [facility] Last Admin: 09/04/16 16:44 Dose: 325 mg Heparin Sodium (Porcine) (Heparin) 5,000 units SC Q8 [facility] PRN Reason: Protocol Last Admin: 09/05/16 01:49 Dose: 5,000 units Hydralazine HCl (Apresoline) 25 mg PO BID [facility] Last Admin: 09/04/16 16:43 Dose: 25 mg Tigecycline 50 mg/ Sodium (Chloride) 100 mls @ 100 mls/hr IVPB Q12@0200,1400 [facility] Last Admin: 09/05/16 01:49 Dose: 100 mls/hr Insulin Human Regular (Humulin R) 0 units SC ACHS [facility] PRN Reason: Protocol Last Admin: 09/05/16 07:55 Dose: 1 units Metoclopramide HCl (Reglan) 10 mg IVPB Q6 PRN PRN Reason: Nausea/Vomiting Last Admin: 09/03/16 09:03 Dose: 10 mg Mupirocin (Bactroban Ointment) 1 applic TOP DAILY [facility] Last Admin: 09/04/16 09:09 Dose: 1 applic Ondansetron HCl (Zofran Inj) 4 mg IVP Q8 PRN PRN Reason: Nausea/Vomiting Last Admin: 09/04/16 16:45 Dose: 4 mg Pantoprazole Sodium (Protonix Ec Tab) 40 mg PO DAILY [facility] Last Admin: 09/04/16 09:09 Dose: 40 mg Risperidone (Risperdal Tab) 0.5 mg PO Q8 [facility] Last Admin: 09/05/16 01:49 Dose: 0.5 mg Sevelamer HCl (Renagel) 800 mg PO TID [facility] Last Admin: 09/04/16 16:44 Dose: 800 mg Zolpidem Tartrate (Ambien) 5 mg PO HS PRN PRN Reason: Insomnia Last Admin: 09/04/16 22:33 Dose: 5 mg - Labs Labs: 09/05/16 07:55 09/05/16 07:55 APTT 29.9 SECONDS (23.3-32.5) 09/02/16 09:45 - Constitutional Appears: Well, Non-toxic, No Acute Distress - Extremities Exam Additional comments: Right foot exam: Dressing clean, dry, and intact. Derm: Open ulceration noted to plantar aspect of right midfoot measuring 1.3cm x 1cm x 0.3cm with 80fibrotic 20% granular base. No undermining. Localized hyperkeratotic tissue to maria m-wound border extending 2.5 cm circumferentially. no Probe to bone, no erythema, no purulence, no malodor. No active drainage present at this time. No erythema. No sign of infection is noted. Vascular: DP/PT pulses 1/4, CFT<3 seconds, skin temp normal Neuro: Protective sensation grossly diminished Ortho: Right plantar foot Charcot deformity with rocker bottom presentation, and plantar bony prominence - Neurological Exam Neurological Exam: Awake, Oriented x3 - Psychiatric Exam Psychiatric exam: Normal Affect, Normal Mood - Skin Skin Exam: Normal Color, Warm Assessment and Plan - Assessment and Plan (Free Text) Assessment: 60 year old female with Right foot plantar ulceration secondary to Charcot deformity. Plan: Patient seen and evaluated, discussed with attending Dr. Briseno. Labs and vitals reviewed; afebrile -Right foot dressed with DSD. Santyl vs Silvedene for dressing changes. -IV abx per primary service. Podiatry will continue to follow while patient remains in house
[2016-09-05] MEDS: Pantoprazole 40 mg EC Tab PO SCH (09:44)
[2016-09-05] MEDS: Doxercalciferol 4 mcg/2 ml Inj IV SCH (09:59)
[2016-09-05] MEDS: EPOETIN ALFA 10,000 UNIT/ML ML IV SCH (10:00)
--- NOTE | 2016-09-05 18:00 | CP.PCM.PN ---
Subjective - Date & Time of Evaluation Date of Evaluation: 09/05/16 Time of Evaluation: 17:59 - Subjective Subjective: pt seen and examined, follow up consult is dictated#[id number] stable hd tx Objective - Vital Signs/Intake and Output Vital Signs (last 24 hours): Temp Pulse Resp BP Pulse Ox 99.6 F 63 20 162/76 H 99 09/05/16 16:51 09/05/16 16:51 09/05/16 16:51 09/05/16 16:51 09/05/16 16:51 - Medications Medications: Current Medications Amlodipine Besylate (Norvasc) 5 mg PO DAILY [facility] Last Admin: 09/05/16 10:41 Dose: 5 mg Aspirin (Ecotrin) 81 mg PO DAILY [facility] Last Admin: 09/05/16 10:42 Dose: 81 mg Bisoprolol Fumarate (Zebeta) 5 mg PO DAILY [facility] Last Admin: 09/05/16 10:42 Dose: 5 mg Clonidine HCl (Catapres) 0.1 mg PO DAILY [facility] Last Admin: 09/05/16 10:12 Dose: 0.1 mg Doxercalciferol (Hectorol) 2 mcg IV F [facility] Last Admin: 09/05/16 09:59 Dose: 2 mcg Epoetin Isreal (Procrit) 10,000 unit IV F [facility] Stop: 09/10/16 23:59 Last Admin: 09/05/16 10:00 Dose: 10,000 unit Ferrous Sulfate (Feosol) 325 mg PO BIDWM [facility] Last Admin: 09/05/16 09:41 Dose: 325 mg Heparin Sodium (Porcine) (Heparin) 5,000 units SC Q8 [facility] PRN Reason: Protocol Last Admin: 09/05/16 09:41 Dose: Not Given Hydralazine HCl (Apresoline) 25 mg PO BID [facility] Last Admin: 09/05/16 10:39 Dose: 25 mg Tigecycline 50 mg/ Sodium (Chloride) 100 mls @ 100 mls/hr IVPB Q12@0200,1400 [facility] Last Admin: 09/05/16 14:28 Dose: 100 mls/hr Insulin Human Regular (Humulin R) 0 units SC ACHS [facility] PRN Reason: Protocol Last Admin: 09/05/16 12:33 Dose: 1 units Metoclopramide HCl (Reglan) 10 mg IVPB Q6 PRN PRN Reason: Nausea/Vomiting Last Admin: 09/03/16 09:03 Dose: 10 mg Mupirocin (Bactroban Ointment) 1 applic TOP DAILY [facility] Last Admin: 09/05/16 09:46 Dose: 1 applic Ondansetron HCl (Zofran Inj) 4 mg IVP Q8 PRN PRN Reason: Nausea/Vomiting Last Admin: 09/04/16 16:45 Dose: 4 mg Pantoprazole Sodium (Protonix Ec Tab) 40 mg PO DAILY [facility] Last Admin: 09/05/16 09:44 Dose: 40 mg Risperidone (Risperdal Tab) 0.5 mg PO Q8 [facility] Last Admin: 09/05/16 09:43 Dose: 0.5 mg Sevelamer HCl (Renagel) 800 mg PO TID [facility] Last Admin: 09/05/16 12:40 Dose: 800 mg Zolpidem Tartrate (Ambien) 5 mg PO HS PRN PRN Reason: Insomnia Last Admin: 09/04/16 22:33 Dose: 5 mg - Labs Labs: 09/05/16 07:55 09/05/16 07:55 APTT 29.9 SECONDS (23.3-32.5) 09/02/16 09:45
--- NOTE | 2016-09-05 18:25 | CP.PCM.CON ---
History of Present Illness - History of Present Illness History of Present Illness: 60 year old female presenting with syncope and abdominal pain. Found to aHave + blood c/s as well as MDRO urine Started on Tygacil IV PMH history of Hypertension, Hyperlipidemia, ESRD on HD MWF, and right foot plantar ulceration secondary to Charcot deformity Family- brother: Throat cancer Social- denies tobacco, alcohol, illicit drug use Surgery- hernia repair, , tonsillectomy, appendectomy Past Patient History - Infectious Disease Hx of Infectious Diseases: None - Tetanus Immunizations Tetanus Immunization: Unknown - Past Medical History & Family History Past Medical History?: Yes - Past Social History Smoking Status: Never Smoked - CARDIAC Hx Cardiac Disorders: Yes Hx Congestive Heart Failure: Yes Hx Hypercholesterolemia: Yes Hx Hypertension: Yes Hx Peripheral Edema: Yes - PULMONARY Hx Respiratory Disorders: Yes Hx Asthma: Yes Hx Bronchitis: Yes Hx Chronic Obstructive Pulmonary Disease (COPD): Yes Hx Pneumonia: Yes - NEUROLOGICAL Hx Neurological Disorder: No - HEENT Hx HEENT Problems: Yes Other/Comment: uses reading glass - RENAL Hx Chronic Kidney Disease: Yes Hx Dialysis: Yes Type of Dialysis Access: AV shunt L arm Date of Last Dialysis Treatment: 08/31/16 Hx Kidney Stones: No Hx Neurogenic Bladder: No Hx Pyelonephritis: No Hx Renal (Kidney) Cancer: No Hx Renal Failure: Yes - ENDOCRINE/METABOLIC Hx Endocrine Disorders: Yes Hx Diabetes Mellitus Type 2: Yes - HEMATOLOGICAL/ONCOLOGICAL Hx Blood Disorders: Yes Hx Anemia: Yes Hx Human Immunodeficiency Virus (HIV): No - INTEGUMENTARY Hx Dermatological Problems: Yes Other/Comment: Right foot pressure ulcer - MUSCULOSKELETAL/RHEUMATOLOGICAL Hx Musculoskeletal Disorders: Yes Hx Falls: Yes - GASTROINTESTINAL Hx Gastrointestinal Disorders: Yes Other/Comment: Gastroparesis - GENITOURINARY/GYNECOLOGICAL Hx Genitourinary Disorders: Yes Hx Urinary Tract Infection: Yes - PSYCHIATRIC Hx Psychophysiologic Disorder: Yes Hx Anxiety: Yes Hx Bipolar Disorder: Yes Hx Depression: Yes Hx Schizophrenia: Yes Hx Substance Use: No - SURGICAL HISTORY Hx Surgeries: Yes Hx Appendectomy: Yes Hx Arteriovenous Shunt: Yes Hx Section: Yes Hx Herniorrhaphy: Yes Hx Tonsillectomy: Yes Hx Vascular Access Device: Yes - ANESTHESIA Hx Anesthesia: Yes Hx Anesthesia Reactions: No Hx Malignant Hyperthermia: No Has any member of the family had a problem w/ anesthesia?: No Meds Allergies/Adverse Reactions: Allergies Allergy/AdvReac Type Severity Reaction Status Date / Time ciprofloxacin [From Cipro] Allergy RASH Verified 09/01/16 17:56 ciprofloxacin HCl Allergy RASH Verified 09/01/16 17:56 [From Cipro] shellfish derived Allergy RASH Verified 09/01/16 17:56 - Medications Medications: Current Medications Amlodipine Besylate (Norvasc) 5 mg PO DAILY [facility] Last Admin: 09/05/16 10:41 Dose: 5 mg Aspirin (Ecotrin) 81 mg PO DAILY [facility] Last Admin: 09/05/16 10:42 Dose: 81 mg Bisoprolol Fumarate (Zebeta) 5 mg PO DAILY [facility] Last Admin: 09/05/16 10:42 Dose: 5 mg Clonidine HCl (Catapres) 0.1 mg PO DAILY [facility] Last Admin: 09/05/16 10:12 Dose: 0.1 mg Doxercalciferol (Hectorol) 2 mcg IV [facility] Last Admin: 09/05/16 09:59 Dose: 2 mcg Epoetin Isreal (Procrit) 10,000 unit IV [facility] Stop: 09/10/16 23:59 Last Admin: 09/05/16 10:00 Dose: 10,000 unit Ferrous Sulfate (Feosol) 325 mg PO BIDWM [facility] Last Admin: 09/05/16 09:41 Dose: 325 mg Heparin Sodium (Porcine) (Heparin) 5,000 units SC Q8 [facility] PRN Reason: Protocol Last Admin: 09/05/16 09:41 Dose: Not Given Hydralazine HCl (Apresoline) 25 mg PO BID [facility] Last Admin: 09/05/16 10:39 Dose: 25 mg Tigecycline 50 mg/ Sodium (Chloride) 100 mls @ 100 mls/hr IVPB Q12@0200,1400 [facility] Last Admin: 09/05/16 14:28 Dose: 100 mls/hr Insulin Human Regular (Humulin R) 0 units SC ACHS [facility] PRN Reason: Protocol Last Admin: 09/05/16 12:33 Dose: 1 units Metoclopramide HCl (Reglan) 10 mg IVPB Q6 PRN PRN Reason: Nausea/Vomiting Last Admin: 09/03/16 09:03 Dose: 10 mg Mupirocin (Bactroban Ointment) 1 applic TOP DAILY [facility] Last Admin: 09/05/16 09:46 Dose: 1 applic Ondansetron HCl (Zofran Inj) 4 mg IVP Q8 PRN PRN Reason: Nausea/Vomiting Last Admin: 09/04/16 16:45 Dose: 4 mg Pantoprazole Sodium (Protonix Ec Tab) 40 mg PO DAILY [facility] Last Admin: 09/05/16 09:44 Dose: 40 mg Risperidone (Risperdal Tab) 0.5 mg PO Q8 [facility] Last Admin: 09/05/16 09:43 Dose: 0.5 mg Sevelamer HCl (Renagel) 800 mg PO TID [facility] Last Admin: 09/05/16 12:40 Dose: 800 mg Zolpidem Tartrate (Ambien) 5 mg PO HS PRN PRN Reason: Insomnia Last Admin: 09/04/16 22:33 Dose: 5 mg Results - Vital Signs Recent Vital Signs: Last Vital Signs Temp 99.6 F 09/05/16 16:51 Pulse 63 09/05/16 16:51 Resp 20 09/05/16 16:51 BP 162/76 H 09/05/16 16:51 Pulse Ox 99 09/05/16 16:51 - Labs Result Diagrams: 09/05/16 07:55 09/05/16 07:55 Labs: Laboratory Results - last 24 hr 09/04/16 09/05/16 09/05/16 21:58 06:12 07:55 WBC 14.2 H RBC 2.87 L Hgb 8.5 L Hct 27.2 L MCV 94.8 MCH 29.6 MCHC 31.2 L RDW 16.8 H Plt Count 279 Sodium 132 Potassium 4.7 Chloride 96 L Carbon Dioxide 25 Anion Gap 16 BUN 43 H Creatinine 5.5 H Est GFR ( Amer) 10 Est GFR (Non-Af Amer) 8 POC Glucose (mg/dL) 199 H 160 H Random Glucose 152 H Calcium 8.8 09/05/16 09/05/16 11:04 16:28 WBC RBC Hgb Hct MCV MCH MCHC RDW Plt Count Sodium Potassium Chloride Carbon Dioxide Anion Gap BUN Creatinine Est GFR ( Amer) Est GFR (Non-Af Amer) POC Glucose (mg/dL) 169 H 77 Random Glucose Calcium
--- NOTE | 2016-09-05 19:00 | NM ---
PROCEDURE: Radionuclide hepatobiliary scan HISTORY: Gallstones COMPARISON: Not available TECHNIQUE: Following the intravenous administration of 5.6 MCi of technetium 99 M Choletec, sequential anterior images of the abdomen were obtained out to 105 minutes. FINDINGS: There is normal uptake and excretion of the radiopharmaceutical by the liver. The gallbladder is visualized by 5 minutes. There is no evidence of intrahepatic biliary dilatation. Bowel is visualized at 90 minutes post administration. IMPRESSION: No evidence of cystic duct or common bile duct obstruction.
--- NOTE | 2016-09-05 23:53 | PN ---
DATE: 09/05/2016 The patient is located in room 655, bed 2. HISTORY OF PRESENT ILLNESS: The patient is a 60-year-old elderly female with a past medical history significant for longstanding hypertension, diabetes, psych disorder, end-stage renal disease, Charcot 's foot, recurrent UTI, and questionable neurogenic bladder, was admitted with chief complaints of fe samara, chills, and dysuria, who was recently admitted to [facility] and treated for UTI, and now r eadmitted to [facility] with not feeling well, weakness, and dysuria. The madeline rios was found to have a urine culture positive for gram-negative rods. Blood culture is positive f or gram-positive cocci and Staph aureus, coag negative, and also urine culture positive for Klebsiell a pneumoniae. The patient is not in acute distress and denies any headache or dizziness. Denies any chest pain or palpitations. Denies any fever or cough. The patient underwent hemodialysis without any complications. PHYSICAL EXAMINATION: VITAL SIGNS: As follows: Blood pressure 162/76, pulse 63, respirations 20, temperature 99.6. GENERAL: The patient is a 60-year-old elderly female, moderately built, moderately nourished, not in acute distress. HEENT: Pupils normal reactive to light and accommodation. Conjunctivae pink. Sclerae anicteric. T ongue is moist. NECK: Trachea midline. LUNGS: Symmetric on both sides. Bilateral breath sounds present. Clear on auscultation. CARDIOVASCULAR: [place] in the fifth intercostal space, midclavicular line. S1, S2 audible. No murmur or gallop. ABDOMEN: Slightly protuberant, soft, tympanic. No guarding, no rigidity, no hepatosplenomegaly. CENTRAL NERVOUS SYSTEM: The patient is alert, awake, oriented x 3, nonfocal on examination. Cranial nerves II-XII grossly intact. Sensory and motor system is within normal limits. EXTREMITIES: No cyanosis, no clubbing, no edema on the left side. The patient has a dressing to the right foot. CURRENT MEDICATIONS: Include as follows: Ambien 5 mg at bedtime, hydralazine 25 mg p.o. b.i.d., Ba ctroban ointment topical daily, Catapres 0.1 mg p.o. daily, Ecotrin 81 mg daily, Feosol 325 mg p.o. b .i.d., subcutaneous heparin 5000 q. 8 hours, Symlin R for sliding scale, Norvasc 5 mg daily, Procrit 10,000 units 3 times a week, Saturday, Saturday, Saturday, Protonix 40 mg p.o. daily, Reglan 10 mg IV q. 6 hours, Renagel 800 mg p.o. t.i.d., risperidone 0.5 mg p.o. q. 8 hours, tigecycline 50 mg IV piggyb ack, bisoprolol 5 mg p.o. daily, and Zofran 4 mg IV q. 8 hours. LABORATORY DATA: Include as follows as of 09/05/2016: WBC 14.2, hemoglobin 8.5, hematocrit 27.2, shaheen telets 275. Sodium 132, potassium 4.7, chloride 96, CO2 25, BUN 43, creatinine 5.5, glucose 152, twila cium 8.8. Urine culture positive for Klebsiella pneumoniae as of 09/01/2016, and blood culture positi ve for Staph aureus coag-negative as of 09/01/2016 x 1. HIDA scan: No evidence of cystic duct and co mmon bile duct obstruction. As of 09/03/2016, abdominal ultrasound, minimal hepatomegaly, nonspecific thickening of the gallbladder wall without evidence of cholelithiasis, trace ascites, right pleural effusion, and minimal pericardial effusion. SUMMARY: The patient is a 60-year-old elderly female with a history of longstanding hyperte nsion, diabetes, end-stage renal disease, psych disorder, with a Charcot foot, who was admitted with dysuria, frequency, weakness, and found to have gram-negative rods in the urine, identified with Kleb siella pneumoniae, and blood culture x 1 is positive for Staphylococcus coagulase-negative. 1. End-stage renal disease: Continue hemodialysis 3 times a week, Saturday, Saturday, and Saturday; st able hemodialysis treatment today. 2. Hypertension. 3. Urinary tract infection. 4. Staphylococcus coagulase-negative sepsis. Continue antibiotics as per ID, tigecycline. 5. Continue Procrit, Zemplar, Renagel, Nephro-Brit. We will follow with you. Thank you for allowing me to participate in your patient's care. Linda Bernal MD cc: [phone] TT: 09/05/2016 23:53:11 Confirmation # [id number] Dictation # [id number] vn
[2016-09-06] MEDS: Insulin Regular 100 units/ml SC SCH ×4 (06:44→22:50)
--- NOTE | 2016-09-06 08:17 | PQF GENQUE ---
Dr. Michaud, (1) In agreement with he diagnosis of Sepsis? if yes: (2) Etiology of Sepsis? (3) POA? OR:Disagree OR: Unable to determine OR: Other explanation of clinical findings -I.D. NOTE: ID; with syncope and abdominal pain. Found to a Have + blood c/s as well as MDRO urine Started on Tygacil IV 09/03 Renal note: possible urosepsis 09/05 Renal note:history of hypertension, diabetes, recurrent urinary tract infections, questionable neurogenic bladder, Charcot's foot, end- stage renal disease, status post treatment for urinary tract infection, was admitted with nausea, vomiting, abdominal pain, and urine culture is positive for gram- negative rods. Impression:Staphylococcus coagulase-negative sepsis. Continue antibiotics as per ID, tigecycline WBC; 16.1->10.9->12.5->14.2 LEFT SHIFT This form is a permanent part of the medical record Clarification of your documentation is requested to better reflect the severity of illness and intensity of treatment of your patient. Indicators present [] Specify: [] [] Specify: [] [] Specify: [] [] Specify: [] Location in the medical record that reflects the above clinical findings: [] Treatment Provided: [] PHYSICIAN'S RESPONSE Based on your medical judgment of the clinical indicators outlined above please clarify the following: [] Practitioner response [] If unable to determine, please check the box, sign and date. Present On Admission (POA) Indicator: [] Present at the time of admission [] Not present at the time of admission [] Clinically Undetermined In responding to this query, please exercise your independent professional judgment. The fact that a question is asked does not imply that any particular answer is desired or expected. Thank you for your clarification on this documentation. If you have any questions please call. * Thank you, Mell Chopra RN BSN ext. #[phone] MTDD
[2016-09-06] MEDS: Pantoprazole 40 mg EC Tab PO SCH (08:38)
[2016-09-06 08:42] LABS: HEMATOCRIT 29.8 % (34.0-47.0); MEAN CELL VOLUME 94.5 fl (81.0-99.0); MEAN CORPUSCULAR HEMOGLOBIN 29.5 pg (27.0-31.0); MEAN CORPUSCULAR HGB CONC 31.2 g/dL (33.0-37.0); RED CELL DISTRIBUTION WIDTH 17.1 % (11.5-14.5); WHITE BLOOD COUNT 16.5 K/uL (4.8-10.8)
--- NOTE | 2016-09-06 08:45 | CP.PCM.PN ---
Subjective - Date & Time of Evaluation Date of Evaluation: 09/06/16 Time of Evaluation: 08:44 - Subjective Subjective: pt seen and examined, follow up consult is dictated # Objective - Vital Signs/Intake and Output Vital Signs (last 24 hours): Temp Pulse Resp BP Pulse Ox 98.1 F 64 20 148/76 98 09/06/16 08:35 09/06/16 08:35 09/06/16 08:35 09/06/16 08:38 09/06/16 08:35 - Medications Medications: Current Medications Amlodipine Besylate (Norvasc) 5 mg PO DAILY [facility] Last Admin: 09/06/16 08:37 Dose: 5 mg Aspirin (Ecotrin) 81 mg PO DAILY [facility] Last Admin: 09/06/16 08:38 Dose: 81 mg Bisoprolol Fumarate (Zebeta) 5 mg PO DAILY [facility] Last Admin: 09/06/16 08:38 Dose: 5 mg Clonidine HCl (Catapres) 0.1 mg PO DAILY [facility] Last Admin: 09/06/16 08:38 Dose: 0.1 mg Doxercalciferol (Hectorol) 2 mcg IV F [facility] Last Admin: 09/05/16 09:59 Dose: 2 mcg Epoetin Isreal (Procrit) 10,000 unit IV MWF [facility] Stop: 09/10/16 23:59 Last Admin: 09/05/16 10:00 Dose: 10,000 unit Ferrous Sulfate (Feosol) 325 mg PO BIDWM [facility] Last Admin: 09/06/16 08:37 Dose: 325 mg Heparin Sodium (Porcine) (Heparin) 5,000 units SC Q8 [facility] PRN Reason: Protocol Last Admin: 09/06/16 08:39 Dose: 5,000 units Hydralazine HCl (Apresoline) 25 mg PO BID [facility] Last Admin: 09/06/16 08:38 Dose: 25 mg Tigecycline 50 mg/ Sodium (Chloride) 100 mls @ 100 mls/hr IVPB Q12@0200,1400 [facility] Last Admin: 09/06/16 01:10 Dose: 100 mls/hr Insulin Human Regular (Humulin R) 0 units SC ACHS [facility] PRN Reason: Protocol Last Admin: 09/06/16 06:44 Dose: Not Given Metoclopramide HCl (Reglan) 10 mg IVPB Q6 PRN PRN Reason: Nausea/Vomiting Last Admin: 09/03/16 09:03 Dose: 10 mg Mupirocin (Bactroban Ointment) 1 applic TOP DAILY [facility] Last Admin: 09/06/16 08:37 Dose: 1 applic Ondansetron HCl (Zofran Inj) 4 mg IVP Q8 PRN PRN Reason: Nausea/Vomiting Last Admin: 09/04/16 16:45 Dose: 4 mg Pantoprazole Sodium (Protonix Ec Tab) 40 mg PO DAILY [facility] Last Admin: 09/06/16 08:38 Dose: 40 mg Risperidone (Risperdal Tab) 0.5 mg PO Q8 [facility] Last Admin: 09/06/16 08:37 Dose: 0.5 mg Sevelamer HCl (Renagel) 800 mg PO TID [facility] Last Admin: 09/06/16 08:37 Dose: 800 mg Zolpidem Tartrate (Ambien) 5 mg PO HS PRN PRN Reason: Insomnia Last Admin: 09/04/16 22:33 Dose: 5 mg - Labs Labs: 09/05/16 07:55 09/05/16 07:55 APTT 29.9 SECONDS (23.3-32.5) 09/02/16 09:45
[2016-09-06 09:00] LABS: ALB/GLOB RATIO 0.9 (1.0-2.1); BILIRUBIN,TOTAL 0.3 mg/dl (0.2-1.3); CALCIUM 8.9 mg/dL (8.4-10.2); POTASSIUM 4.4 MMOL/L (3.6-5.0); TOTAL PROTEIN 7.4 G/DL (6.3-8.2)
--- NOTE | 2016-09-06 09:03 | CP.PCM.PN ---
Subjective - Date & Time of Evaluation Date of Evaluation: 09/06/16 Time of Evaluation: 07:40 - Subjective Subjective: 60 y/o female seen at bedside this morning concerning right foot plantar ulceration secondary to Charcot deformity. Patient was resting comfortably in bed AAO x3. She denies of acute overnight distress. Dressing to Right foot remains clean, dry and intact. Patient states that she feels mild pain to the site of ulceration. She denies n/f/v/d/c/sob. Objective - Vital Signs/Intake and Output Vital Signs (last 24 hours): Temp Pulse Resp BP Pulse Ox 98.1 F 64 20 148/76 98 09/06/16 08:35 09/06/16 08:35 09/06/16 08:35 09/06/16 08:38 09/06/16 08:35 - Medications Medications: Current Medications Amlodipine Besylate (Norvasc) 5 mg PO DAILY [facility] Last Admin: 09/06/16 08:37 Dose: 5 mg Aspirin (Ecotrin) 81 mg PO DAILY [facility] Last Admin: 09/06/16 08:38 Dose: 81 mg Bisoprolol Fumarate (Zebeta) 5 mg PO DAILY [facility] Last Admin: 09/06/16 08:38 Dose: 5 mg Clonidine HCl (Catapres) 0.1 mg PO DAILY [facility] Last Admin: 09/06/16 08:38 Dose: 0.1 mg Doxercalciferol (Hectorol) 2 mcg IV F [facility] Last Admin: 09/05/16 09:59 Dose: 2 mcg Epoetin Isreal (Procrit) 10,000 unit IV F [facility] Stop: 09/10/16 23:59 Last Admin: 09/05/16 10:00 Dose: 10,000 unit Ferrous Sulfate (Feosol) 325 mg PO BIDWM [facility] Last Admin: 09/06/16 08:37 Dose: 325 mg Heparin Sodium (Porcine) (Heparin) 5,000 units SC Q8 [facility] PRN Reason: Protocol Last Admin: 09/06/16 08:39 Dose: 5,000 units Hydralazine HCl (Apresoline) 25 mg PO BID [facility] Last Admin: 09/06/16 08:38 Dose: 25 mg Tigecycline 50 mg/ Sodium (Chloride) 100 mls @ 100 mls/hr IVPB Q12@0200,1400 [facility] Last Admin: 09/06/16 01:10 Dose: 100 mls/hr Insulin Human Regular (Humulin R) 0 units SC ACHS [facility] PRN Reason: Protocol Last Admin: 09/06/16 06:44 Dose: Not Given Metoclopramide HCl (Reglan) 10 mg IVPB Q6 PRN PRN Reason: Nausea/Vomiting Last Admin: 09/03/16 09:03 Dose: 10 mg Mupirocin (Bactroban Ointment) 1 applic TOP DAILY [facility] Last Admin: 09/06/16 08:37 Dose: 1 applic Ondansetron HCl (Zofran Inj) 4 mg IVP Q8 PRN PRN Reason: Nausea/Vomiting Last Admin: 09/04/16 16:45 Dose: 4 mg Pantoprazole Sodium (Protonix Ec Tab) 40 mg PO DAILY [facility] Last Admin: 09/06/16 08:38 Dose: 40 mg Risperidone (Risperdal Tab) 0.5 mg PO Q8 [facility] Last Admin: 09/06/16 08:37 Dose: 0.5 mg Sevelamer HCl (Renagel) 800 mg PO TID [facility] Last Admin: 09/06/16 08:37 Dose: 800 mg Zolpidem Tartrate (Ambien) 5 mg PO HS PRN PRN Reason: Insomnia Last Admin: 09/04/16 22:33 Dose: 5 mg - Labs Labs: 09/06/16 08:15 09/05/16 07:55 APTT 29.9 SECONDS (23.3-32.5) 09/02/16 09:45 - Constitutional Appears: Well, Non-toxic, No Acute Distress - Extremities Exam Additional comments: Right foot exam: Dressing clean, dry, and intact. Derm: Open ulceration noted to plantar aspect of right midfoot measuring 1.3cm x 1cm x 0.3cm with 80fibrotic 20% granular base. No undermining. Localized hyperkeratotic tissue to maria m-wound border extending 2.5 cm circumferentially. no Probe to bone, no erythema, no purulence, no malodor. No active drainage present at this time. No erythema. No sign of infection is noted. Vascular: DP/PT pulses 1/4, CFT<3 seconds, skin temp normal Neuro: Protective sensation grossly diminished Ortho: Right plantar foot Charcot deformity with rocker bottom presentation, and plantar bony prominence - Neurological Exam Neurological Exam: Awake, Oriented x3 - Psychiatric Exam Psychiatric exam: Normal Affect, Normal Mood - Skin Skin Exam: Normal Color, Warm Assessment and Plan - Assessment and Plan (Free Text) Assessment: 60 year old female with Right foot plantar ulceration secondary to Charcot deformity. Plan: Patient seen and evaluated, discussed with attending Dr. Briseno. Labs and vitals reviewed; afebrile -Right foot dressed with DSD. Santyl vs Silvedene for dressing changes. -IV abx per primary service. Podiatry will continue to follow while patient remains in house
--- NOTE | 2016-09-06 10:19 | CP.PCM.PN ---
Subjective - Date & Time of Evaluation Date of Evaluation: 09/06/16 Time of Evaluation: 10:18 - Subjective Subjective: pt seen and examined, follow up consult is dictated #[id number] Objective - Vital Signs/Intake and Output Vital Signs (last 24 hours): Temp Pulse Resp BP Pulse Ox 98.1 F 64 20 148/76 98 09/06/16 08:35 09/06/16 08:35 09/06/16 08:35 09/06/16 08:38 09/06/16 08:35 - Medications Medications: Current Medications Amlodipine Besylate (Norvasc) 5 mg PO DAILY [facility] Last Admin: 09/06/16 08:37 Dose: 5 mg Aspirin (Ecotrin) 81 mg PO DAILY [facility] Last Admin: 09/06/16 08:38 Dose: 81 mg Bisoprolol Fumarate (Zebeta) 5 mg PO DAILY [facility] Last Admin: 09/06/16 08:38 Dose: 5 mg Clonidine HCl (Catapres) 0.1 mg PO DAILY [facility] Last Admin: 09/06/16 08:38 Dose: 0.1 mg Doxercalciferol (Hectorol) 2 mcg IV MWF [facility] Last Admin: 09/05/16 09:59 Dose: 2 mcg Epoetin Isreal (Procrit) 10,000 unit IV F [facility] Stop: 09/10/16 23:59 Last Admin: 09/05/16 10:00 Dose: 10,000 unit Ferrous Sulfate (Feosol) 325 mg PO BIDWM [facility] Last Admin: 09/06/16 08:37 Dose: 325 mg Heparin Sodium (Porcine) (Heparin) 5,000 units SC Q8 [facility] PRN Reason: Protocol Last Admin: 09/06/16 08:39 Dose: 5,000 units Hydralazine HCl (Apresoline) 25 mg PO BID [facility] Last Admin: 09/06/16 08:38 Dose: 25 mg Tigecycline 50 mg/ Sodium (Chloride) 100 mls @ 100 mls/hr IVPB Q12@0200,1400 [facility] Last Admin: 09/06/16 01:10 Dose: 100 mls/hr Insulin Human Regular (Humulin R) 0 units SC ACHS [facility] PRN Reason: Protocol Last Admin: 09/06/16 06:44 Dose: Not Given Metoclopramide HCl (Reglan) 10 mg IVPB Q6 PRN PRN Reason: Nausea/Vomiting Last Admin: 09/03/16 09:03 Dose: 10 mg Mupirocin (Bactroban Ointment) 1 applic TOP DAILY [facility] Last Admin: 09/06/16 08:37 Dose: 1 applic Ondansetron HCl (Zofran Inj) 4 mg IVP Q8 PRN PRN Reason: Nausea/Vomiting Last Admin: 09/04/16 16:45 Dose: 4 mg Pantoprazole Sodium (Protonix Ec Tab) 40 mg PO DAILY [facility] Last Admin: 09/06/16 08:38 Dose: 40 mg Risperidone (Risperdal Tab) 0.5 mg PO Q8 [facility] Last Admin: 09/06/16 08:37 Dose: 0.5 mg Sevelamer HCl (Renagel) 800 mg PO TID [facility] Last Admin: 09/06/16 08:37 Dose: 800 mg Zolpidem Tartrate (Ambien) 5 mg PO HS PRN PRN Reason: Insomnia Last Admin: 09/04/16 22:33 Dose: 5 mg - Labs Labs: 09/06/16 08:15 09/06/16 08:15 APTT 29.9 SECONDS (23.3-32.5) 09/02/16 09:45
--- NOTE | 2016-09-06 10:48 | PN ---
DATE: 09/06/2016 The patient is located in room 665, bed 2. REQUESTED BY: Dr. Thierno Michaud REASON FOR FOLLOWUP: End-stage renal disease, continuation of the hemodialysis. The patient is a 60-year-old elderly female with a history of longstanding hypertension, diabetes, end-stage renal disease, psych disorder and recurrent UTI, questionable neurogenic bladder, Charcot right foot, who was admitted with dysuria, feeling weak and tired, and found to have urine culture gram-negative azeb and blood culture positive for Staph coag-negative. The patient is on tigecycline. The patient is still complaining of feeling weak and tired. No chest pain, no palpitation. The patient also complains of loose bowel movement. PHYSICAL EXAMINATION: VITAL SIGNS: This morning as follows: Blood pressure 148/76, pulse 64, respiration 20, temperature 98.1, saturation 98%. Height 5 feet 3 inches and weight is 162 pounds. GENERAL: The patient is a 60-year-old, elderly, female, moderately built, moderately nourished, not in acute distress. HEENT: Pupils normal, reactive to light and accommodation. Conjunctivae pink. Sclerae anicteric. Tongue is moist. NECK: Trachea is midline. LUNGS: Symmetric on both sides. Bilateral breath sounds present. Clear on auscultation. CARDIOVASCULAR: [place] at the fifth intercostal space, midclavicular line. S1 and S2 audible. No murmur or gallop. ABDOMEN: Normal in appearance, soft, tympanic. No guarding, no rigidity. No hepatosplenomegaly. CENTRAL NERVOUS SYSTEM: The patient is alert, awake, oriented x 2-3. Sensory and motor system is grossly within normal limits. Cranial nerves II-XII grossly intact. EXTREMITIES: No cyanosis, no clubbing, no edema. The patient has a dressing to the right foot. MEDICATIONS: Reviewed. Ambien 5 mg at bedtime, hydralazine 25 mg p.o. b.i.d., Bactroban ointment topical daily, Catapres 0.1 mg daily, Ecotrin 81 mg daily, Feosol 325 p.o. b.i.d., Hectorol 2 mcg 3 times a week on Saturday, Saturday, Saturday, subcutaneous heparin 5000 q. 8 hours, Humulin R for sliding scale, Norvasc 5 mg p.o. daily, Procrit 10,000 units Saturday, Saturday, Saturday, Protonix 40 mg daily, Reglan 10 mg IV q. 6 hours, Renagel 800 mg p.o. t.i.d., Risperdal, tigecycline 50 mg daily, Zebeta 5 mg p.o. daily, Zofran 4 mg IV q. 8 hours p.r.n. LABORATORY DATA: Include as follows: As of 09/06/2016: WBC 16., hemoglobin 9.3 , hematocrit is 29.8, platelets 282. Sodium 130, potassium 4.4, chloride 94, CO2 26, BUN 37, creatinine 4.3, glucose 154, calcium 8.9, total bilirubin 0.3, AST 28, ALT 35, alkaline phosphatase 264, total protein 7.4. Stool for C. diff toxin is negative as of 09/05/2016 and blood culture positive for Staph coag negative and urine as of 09/01/2016 and urine culture positive for Klebsiella pneumoniae sensitive to Bactrim and colistin. SUMMARY: The patient is a 60-year-old elderly female with a history of hypertension, diabetes, end-stage renal disorder, psych disorder and urinary tract infection and now blood culture positive for Staph coag-negative and urine culture positive for Klebsiella pneumoniae, on tigecycline. 1. End-stage renal disease. Continue hemodialysis 3 times a week, Saturday, Saturday, Saturday. 2. Anemia, secondary to renal failure, rule out iron deficiency. Check iron, TIBC, ferritin level. 3. Urinary tract infection. 4. Staph coag-negative sepsis. Continue antibiotics as per ID recommendation. We will follow with you. Thank you for allowing me to participate in your patient's care. Linda Bernal MD cc: [id number] TT: 09/06/2016 10:48:00 Confirmation # [id number] Dictation # [id number] en MTDD
--- NOTE | 2016-09-06 10:51 | PN ---
DATE: 09/06/2016 The patient seen and examined. Interim events noted. Consults noted and appreciated. The patient r emains on regular medical floor. The patient complains of generalized weakness. The patient is with klebsiella UTI and gram-positive cocci septicemia. Denies any specific complaint of chest pain or s hortness of breath. Abdominal pain is also resolved. The patient is tolerating food. PHYSICAL EXAMINATION: GENERAL: The patient is in no acute distress. VITAL SIGNS: Stable. The patient is afebrile. HEART: S1, S2 normal, regular. LUNGS: Good bilateral air exchange. ABDOMEN: Soft, nontender. Previously reported right upper quadrant tenderness is improved. Bowel s ounds are plus and normal. There is no sign of any acute abdomen. No guarding, no rigidity, no rebo und. EXTREMITIES: No edema, no calf swelling, no tenderness, no acute ischemia. The patient's foot exam remains essentially unchanged and was dressed today by podiatry. CENTRAL NERVOUS SYSTEM: The patient is alert, awake, oriented x 3. There is no sign of any acute gr oss focal motor or sensory neurological deficit. DIAGNOSTIC DATA: Available diagnostic data reviewed. Urine culture is positive for Klebsiella which is resistant. Blood culture is positive for staphylococcus. Overall, patient is with septicemia. PLAN: As ordered. Case and plan discussed with patient. Thierno Michaud MD cc: [id number] TT: 09/06/2016 10:50:57 Confirmation # [id number] Dictation # [id number] tereso
[2016-09-06 13:19] LABS: RBC URINE 128 /hpf (0-3); URINE BACTERIA FEW (<OCC); URINE BILIRUBIN NEGATIVE (NEGATIVE); URINE BLOOD MODERATE (NEGATIVE); URINE COLOR AMBER (YELLOW); URINE GLUCOSE (UA) NEG (Normal); URINE KETONE NEGATIVE (NEGATIVE); URINE LEUKOCYTE ESTERASE LARGE Leu/uL (Negative); URINE PROTEIN 100 mg/dL (NEGATIVE); URINE UROBILINOGEN 0.2-1.0 mg/dL (0.2-1.0); WBC CLUMPS MANY /hpf; WBC URINE 6036 /hpf (0-5)
--- NOTE | 2016-09-06 18:56 | CP.PCM.CON ---
History of Present Illness - History of Present Illness History of Present Illness: 60 year old female presenting with syncope and abdominal pain. Found to aHave + blood c/s as well as MDRO urine Started on Tygacil IV PMH history of Hypertension, Hyperlipidemia, ESRD on HD MWF, and right foot plantar ulceration secondary to Charcot deformity Family- brother: Throat cancer Social- denies tobacco, alcohol, illicit drug use Surgery- hernia repair, , tonsillectomy, appendectomy Review of Systems - Constitutional Constitutional: As Per HPI, Anorexia, Malaise - EENT Eyes: absent: As Per HPI, Blind Spots, Blurred Vision, Change in Vision, Decreased Night Vision, Diplopia, Discharge, Dry Eye, Exophthalmos, Floaters, Irritation, Itchy Eyes, Loss of Peripheral Vision, Pain, Photophobia, Requires Corrective Lenses, Sees Flashes, Spots in Vision, Tunnel Vision, Other Visual Disturbances, Loss of Vision, Other Ears: absent: As Per HPI, Decreased Hearing, Ear Discharge, Ear Pain, Tinnitus, Abnormal Hearing, Disequilibrium, Dizziness, Other Nose/Mouth/Throat: absent: As Per HPI, Epistaxis, Nasal Congestion, Nasal Discharge, Nasal Obstruction, Nasal Trauma, Nose Pain, Post Nasal Drip, Sinus Pain, Sinus Pressure, Bleeding Gums, Change in Voice, Dental Pain, Dry Mouth, Dysphagia, Halitosis, Hoarsness, Lip Swelling, Mouth Lesions, Mouth Pain, Odynophagia, Sore Throat, Throat Swelling, Tongue Swelling, Facial Pain, Neck Pain, Neck Mass, Other - Breasts Breasts: absent: As Per HPI, Change in Shape, Mass, Pain, Nipple Discharge, Nipple Inversion, Skin Changes, Swelling, Other - Cardiovascular Cardiovascular: absent: As Per HPI, Acrocyanosis, Chest Pain, Chest Pain at Rest , Chest Pain with Activity, Claudication, Diaphoresis, Dyspnea, Dyspnea on Exertion, Edema, Irregular Heart Rhythm, Pain Radiating to Arm/Neck/Jaw, Leg Edema, Leg Ulcers, Lightheadedness, Orthopnea, Palpitations, Paroxysmal Nocturnal Dyspnea, Pedal Edema, Radiating Pain, Rapid Heart Rate, Slow Heart Rate, Syncope, Other - Gastrointestinal Gastrointestinal: absent: As Per HPI, Abdominal Pain, Belching, Bloating, Change in Bowel Habits, Change in Stool Character, Coffee Ground Emesis, Constipation, Cramping, Diarrhea, Dyspepsia, Dysphagia, Early Satiety, Excessive Flatus, Fecal Incontinence, Heartburn, Hematemesis, Hematochezia, Loose Stools, Melena, Nausea, Odynophagia, Temesmus, Vomiting, Other - Genitourinary Genitourinary: As Per HPI - Reproductive: Female Reproductive:Female: absent: As Per HPI, Amenorrhea, Amenorrhea/ Control, Currently Menstual, Cycle <21 Days, Cycle >35 Days, Cycle Variable, Menses 1-7 Days, Menses >/= 8 Days, Menses Variable, Cycle > 4 Weeks Between, No Menses for 6 Months, Heavy Menses, Light Menses, Normal Menses, Spotting Between Cycles , S/P Hysterectomy, Menopausal, Post Menopausal, Premenarche, Abnormal Vaginal Bleeding, Dysmenorrhea, Dyspareunia, Genital Lesions, Genital Pruritis, Pelvic Pain, Prolapse Symptoms, Sexual Dysfunction, Vaginal Discharge, Vaginal Dryness , Vaginal Odor, Vaginal Pruritis, Other - Menstruation Menstruation: absent: As Per HPI, Amenorrhea, Amenorrhea/ Control, Currently Menstual, Cycle <21 Days, Cycle >35 Days, Cycle Variable, Menses 1-7 Days, Menses >/= 8 Days, Menses Variable, Cycle > 4 Weeks Between, No Menses for 6 Months, Heavy Menses, Light Menses, Normal Menses, Spotting Between Cycles , S/P Hysterectomy, Menopausal, Post Menopausal, Premenarche, Abnormal Vaginal Bleeding, Dysmenorrhea, Other - Musculoskeletal Musculoskeletal: As Per HPI - Integumentary Integumentary: As Per HPI - Neurological Neurological: absent: As Per HPI, Abnormal Gait, Abnormal Hearing, Abnormal Movements, Abnormal Speech, Behavioral Changes, Burning Sensations, Confusion, Convulsions, Disequilibrium, Dizziness, Numbness, Focal Weakness, Frequent Falls , Headaches, Lack of Coordination, Loss of Vision, Memory Loss, Paresthesias, Radicular Pain, Restless Legs, Sensory Deficit, Syncope, Tingling, Tremor, Vertigo, Weakness, Other Visual Disturbances, Other - Psychiatric Psychiatric: absent: As Per HPI, Abnormal Sleep Pattern, Anhedonia, Anxiety, Auditory Hallucinations, Behavioral Changes, Change in Appetite, Change in Libido, Confusion, Depression, Difficulty Concentrating, Hallucinations, Homicidal Ideation, Hopelessness, Irritability, Memory Loss, Mood Swings, Panic Attacks, Paranoia, Suicidal Ideation, Visual Hallucinations, Tactile Hallucinations, Other - Endocrine Endocrine: As Per HPI - Hematologic/Lymphatic Hematologic: absent: As Per HPI, Easy Bleeding, Easy Bruising, Lymphadenopathy, Other Past Patient History - Infectious Disease Hx of Infectious Diseases: None - Tetanus Immunizations Tetanus Immunization: Unknown - Past Medical History & Family History Past Medical History?: Yes - Past Social History Smoking Status: Never Smoked - CARDIAC Hx Cardiac Disorders: Yes Hx Congestive Heart Failure: Yes Hx Hypercholesterolemia: Yes Hx Hypertension: Yes Hx Peripheral Edema: Yes - PULMONARY Hx Respiratory Disorders: Yes Hx Asthma: Yes Hx Bronchitis: Yes Hx Chronic Obstructive Pulmonary Disease (COPD): Yes Hx Pneumonia: Yes - NEUROLOGICAL Hx Neurological Disorder: No - HEENT Hx HEENT Problems: Yes Other/Comment: uses reading glass - RENAL Hx Chronic Kidney Disease: Yes Hx Dialysis: Yes Type of Dialysis Access: AV shunt L arm Date of Last Dialysis Treatment: 08/31/16 Hx Kidney Stones: No Hx Neurogenic Bladder: No Hx Pyelonephritis: No Hx Renal (Kidney) Cancer: No Hx Renal Failure: Yes - ENDOCRINE/METABOLIC Hx Endocrine Disorders: Yes Hx Diabetes Mellitus Type 2: Yes - HEMATOLOGICAL/ONCOLOGICAL Hx Blood Disorders: Yes Hx Anemia: Yes Hx Human Immunodeficiency Virus (HIV): No - INTEGUMENTARY Hx Dermatological Problems: Yes Other/Comment: Right foot pressure ulcer - MUSCULOSKELETAL/RHEUMATOLOGICAL Hx Musculoskeletal Disorders: Yes Hx Falls: Yes - GASTROINTESTINAL Hx Gastrointestinal Disorders: Yes Other/Comment: Gastroparesis - GENITOURINARY/GYNECOLOGICAL Hx Genitourinary Disorders: Yes Hx Urinary Tract Infection: Yes - PSYCHIATRIC Hx Psychophysiologic Disorder: Yes Hx Anxiety: Yes Hx Bipolar Disorder: Yes Hx Depression: Yes Hx Schizophrenia: Yes Hx Substance Use: No - SURGICAL HISTORY Hx Surgeries: Yes Hx Appendectomy: Yes Hx Arteriovenous Shunt: Yes Hx Section: Yes Hx Herniorrhaphy: Yes Hx Tonsillectomy: Yes Hx Vascular Access Device: Yes - ANESTHESIA Hx Anesthesia: Yes Hx Anesthesia Reactions: No Hx Malignant Hyperthermia: No Has any member of the family had a problem w/ anesthesia?: No Meds Allergies/Adverse Reactions: Allergies Allergy/AdvReac Type Severity Reaction Status Date / Time ciprofloxacin [From Cipro] Allergy RASH Verified 09/01/16 17:56 ciprofloxacin HCl Allergy RASH Verified 09/01/16 17:56 [From Cipro] shellfish derived Allergy RASH Verified 09/01/16 17:56 - Medications Medications: Current Medications Amlodipine Besylate (Norvasc) 5 mg PO DAILY [facility] Last Admin: 09/06/16 08:37 Dose: 5 mg Aspirin (Ecotrin) 81 mg PO DAILY [facility] Last Admin: 09/06/16 08:38 Dose: 81 mg Bisoprolol Fumarate (Zebeta) 5 mg PO DAILY [facility] Last Admin: 09/06/16 08:38 Dose: 5 mg Clonidine HCl (Catapres) 0.1 mg PO DAILY [facility] Last Admin: 09/06/16 08:38 Dose: 0.1 mg Doxercalciferol (Hectorol) [address] [facility] Last Admin: 09/05/16 09:59 Dose: 2 mcg Epoetin Isreal (Procrit) 10,[address] [facility] Stop: 09/10/16 23:59 Last Admin: 09/05/16 10:00 Dose: 10,000 unit Ferrous Sulfate (Feosol) 325 mg PO BIDWM [facility] Last Admin: 09/06/16 16:52 Dose: 325 mg Heparin Sodium (Porcine) (Heparin) 5,000 units SC Q8 [facility] PRN Reason: Protocol Last Admin: 09/06/16 16:52 Dose: 5,000 units Hydralazine HCl (Apresoline) 25 mg PO BID [facility] Last Admin: 09/06/16 16:55 Dose: 25 mg Tigecycline 50 mg/ Sodium (Chloride) 100 mls @ 100 mls/hr IVPB Q12@0200,1400 [facility] Last Admin: 09/06/16 13:50 Dose: 100 mls/hr Insulin Human Regular (Humulin R) 0 units SC ACHS [facility] PRN Reason: Protocol Last Admin: 09/06/16 11:57 Dose: 2 units Metoclopramide HCl (Reglan) 10 mg IVPB Q6 PRN PRN Reason: Nausea/Vomiting Last Admin: 09/03/16 09:03 Dose: 10 mg Mupirocin (Bactroban Ointment) 1 applic TOP DAILY [facility] Last Admin: 09/06/16 08:37 Dose: 1 applic Ondansetron HCl (Zofran Inj) 4 mg IVP Q8 PRN PRN Reason: Nausea/Vomiting Last Admin: 09/04/16 16:45 Dose: 4 mg Pantoprazole Sodium (Protonix Ec Tab) 40 mg PO DAILY [facility] Last Admin: 09/06/16 08:38 Dose: 40 mg Risperidone (Risperdal Tab) 0.5 mg PO Q8 [facility] Last Admin: 09/06/16 16:53 Dose: 0.5 mg Sevelamer HCl (Renagel) 800 mg PO TID [facility] Last Admin: 09/06/16 16:51 Dose: 800 mg Zolpidem Tartrate (Ambien) 5 mg PO HS PRN PRN Reason: Insomnia Last Admin: 09/04/16 22:33 Dose: 5 mg Physical Exam - Constitutional Appears: Non-toxic, Cachectic, Chronically Ill - Head Exam Head Exam: NORMAL INSPECTION, NORMOCEPHALIC - Eye Exam Eye Exam: PERRL. absent: Scleral icterus - ENT Exam ENT Exam: Mucous Membranes Dry, Normal External Ear Exam, Normal Oropharynx - Neck Exam Neck exam: Negative for: Lymphadenopathy, Thyromegaly - Respiratory Exam Respiratory Exam: Decreased Breath Sounds, Clear to Auscultation Bilateral - Cardiovascular Exam Cardiovascular Exam: REGULAR RHYTHM, +S1, +S2 - GI/Abdominal Exam GI & Abdominal Exam: Diminished Bowel Sounds, Soft. absent: Tenderness - Rectal Exam Rectal Exam: Deferred - Exam Exam: NORMAL INSPECTION - Extremities Exam Extremities exam: Positive for: pedal edema, tenderness. Negative for: calf tenderness, pedal pulses present Additional comments: plantar ulcer right foot - Back Exam Back exam: absent: CVA tenderness (L), CVA tenderness (R), paraspinal tenderness - Neurological Exam Neurological exam: Alert, CN II-XII Intact, Oriented x3, Reflexes Normal - Psychiatric Exam Psychiatric exam: Normal Mood - Skin Skin Exam: Dry Results - Vital Signs Recent Vital Signs: Last Vital Signs Temp 97.6 F 09/06/16 17:15 Pulse 55 L 09/06/16 17:15 Resp 18 09/06/16 17:15 BP 131/65 09/06/16 17:15 Pulse Ox 93 L 09/06/16 17:15 - Labs Result Diagrams: 09/06/16 08:15 09/06/16 08:15 Labs: Laboratory Results - last 24 hr 09/05/16 09/05/16 09/06/16 15:23 21:48 05:34 WBC RBC Hgb Hct MCV MCH MCHC RDW Plt Count Sodium Potassium Chloride Carbon Dioxide Anion Gap BUN Creatinine Est GFR ( Amer) Est GFR (Non-Af Amer) POC Glucose (mg/dL) 234 H 140 H Random Glucose Calcium Total Bilirubin AST ALT Alkaline Phosphatase Total Protein Albumin Globulin Albumin/Globulin Ratio Urine Color Urine Clarity Urine pH Ur Specific [place] Urine Protein Urine Glucose (UA) Urine Ketones Urine Blood Urine Nitrate Urine Bilirubin Urine Urobilinogen Ur Leukocyte Esterase Urine RBC (Auto) Urine WBC Clumps (Auto) Urine Microscopic WBC Ur Squamous Epith Cells Urine Bacteria C. difficile Ag & Toxin Negative 09/06/16 09/06/16 09/06/16 08:15 11:11 11:17 WBC 16.5 H RBC 3.16 L Hgb 9.3 L Hct 29.8 L MCV 94.5 MCH 29.5 MCHC 31.2 L RDW 17.1 H Plt Count 282 Sodium 130 L Potassium 4.4 Chloride 94 L Carbon Dioxide 26 Anion Gap 14 BUN 37 H Creatinine 4.3 H Est GFR ( Amer) 13 Est GFR (Non-Af Amer) 10 POC Glucose (mg/dL) 214 H Random Glucose 154 H Calcium 8.9 Total Bilirubin 0.3 AST 28 ALT 35 Alkaline Phosphatase 264 H Total Protein 7.4 Albumin 3.5 Globulin 3.9 Albumin/Globulin Ratio 0.9 L Urine Color Cindy Urine Clarity Turbid Urine pH 6.0 Ur Specific [place] 1.018 Urine Protein 100 Urine Glucose (UA) Neg Urine Ketones Negative Urine Blood Moderate Urine Nitrate Negative Urine Bilirubin Negative Urine Urobilinogen 0.2-1.0 Ur Leukocyte Esterase Large Urine RBC (Auto) 128 H Urine WBC Clumps (Auto) Many H Urine Microscopic WBC 6036 H Ur Squamous Epith Cells 4 Urine Bacteria Few H C. 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
[2016-09-06] MEDS: Tmp-Smz 800 mg-160 mg DS Tab PO SCH (23:06)
--- NOTE | 2016-09-07 00:19 | PN ---
DATE: 09/06/2016 SUBJECTIVE: The patient was admitted by Dr. Michaud, who was covering, and she was complaining of lower abdominal pain. The patient was found to have symptomatic urinary tract infection with multidrug re sistant Klebsiella pneumoniae. The patient concentrate urine. Urine was sent for culture and sensitivity again. The patient continued to have generalized weakness, and she had some rashes at the groin area bilaterally. OBJECTIVE: VITAL SIGNS: Blood pressure is 131/65, temperature 97.6, respiratory rate 18, and pulse is 55. HEENT: Pupils equal, reactive to light. Slightly pale mucosa of the conjunctivae. NECK: Supple. No JVD. No carotid bruit. No lymph node. No thyromegaly. CHEST AND LUNGS: Bilateral symmetrical expansion, good air exchange. No rales. No rhonchi. CARDIOVASCULAR: PMI not localized. S1, S2. No additional sounds. ABDOMEN: Normoactive bowel sounds. No tenderness. No organomegaly. No masses. EXTREMITIES: No cyanosis. No clubbing. No edema. FACILITY REHAB DIRECTOR: The patient is alert, awake, oriented x 2. EXTREMITIES: There is bilateral lower extremity decreased sensation. The patient has Charcot joint in the right foot secondary to diabetic neuropathy. ASSESSMENT: 1. Urinary tract infection/urinary retention secondary to neurogenic bladder. 2. Type 2 diabetes mellitus. 3. End-stage renal disease, on hemodialysis. 4. Hypertension. PLAN: Discussed patient's condition with Dr. Michaud, informed me that we will resume care as of today. Continue antibiotics as per ID. Ray Thibodeaux MD cc: [id number] TT: 09/07/2016 00:18:36 Confirmation # [id number] Dictation # [id number] tn
[2016-09-07] MEDS: Insulin Regular 100 units/ml SC SCH ×4 (06:46→22:55)
[2016-09-07] MEDS: Tmp-Smz 800 mg-160 mg DS Tab PO SCH (09:18)
[2016-09-07] MEDS: Pantoprazole 40 mg EC Tab PO SCH (09:19)
--- NOTE | 2016-09-07 10:18 | CP.PCM.PN ---
Subjective - Date & Time of Evaluation Date of Evaluation: 09/07/16 Time of Evaluation: 10:18 - Subjective Subjective: pt seen and examined, follow up consult is dictated #[id number] for hd today Objective - Vital Signs/Intake and Output Vital Signs (last 24 hours): Temp Pulse Resp BP Pulse Ox 98.3 F 56 L 20 153/64 H 99 09/07/16 09:00 09/07/16 09:00 09/07/16 09:00 09/07/16 09:00 09/07/16 09:00 - Medications Medications: Current Medications Amlodipine Besylate (Norvasc) 5 mg PO DAILY [facility] Last Admin: 09/06/16 08:37 Dose: 5 mg Aspirin (Ecotrin) 81 mg PO DAILY [facility] Last Admin: 09/07/16 09:19 Dose: 81 mg Bisoprolol Fumarate (Zebeta) 5 mg PO DAILY [facility] Last Admin: 09/06/16 08:38 Dose: 5 mg Clonidine HCl (Catapres) 0.1 mg PO DAILY [facility] Last Admin: 09/06/16 08:38 Dose: 0.1 mg Doxercalciferol (Hectorol) 2 mcg IV MWF [facility] Last Admin: 09/05/16 09:59 Dose: 2 mcg Epoetin Isreal (Procrit) 10,000 unit IV F [facility] Stop: 09/10/16 23:59 Last Admin: 09/05/16 10:00 Dose: 10,000 unit Ferrous Sulfate (Feosol) 325 mg PO BIDWM [facility] Last Admin: 09/07/16 09:19 Dose: 325 mg Heparin Sodium (Porcine) (Heparin) 5,000 units SC Q8 [facility] PRN Reason: Protocol Last Admin: 09/07/16 09:20 Dose: 5,000 units Hydralazine HCl (Apresoline) 25 mg PO BID [facility] Last Admin: 09/06/16 16:55 Dose: 25 mg Tigecycline 50 mg/ Sodium (Chloride) 100 mls @ 100 mls/hr IVPB Q12@0200,1400 [facility] Last Admin: 09/07/16 02:20 Dose: Not Given Insulin Human Regular (Humulin R) 0 units SC ACHS [facility] PRN Reason: Protocol Last Admin: 09/07/16 06:46 Dose: Not Given Metoclopramide HCl (Reglan) 10 mg IVPB Q6 PRN PRN Reason: Nausea/Vomiting Last Admin: 09/03/16 09:03 Dose: 10 mg Mupirocin (Bactroban Ointment) 1 applic TOP DAILY [facility] Last Admin: 09/07/16 09:18 Dose: 1 applic Ondansetron HCl (Zofran Inj) 4 mg IVP Q8 PRN PRN Reason: Nausea/Vomiting Last Admin: 09/04/16 16:45 Dose: 4 mg Pantoprazole Sodium (Protonix Ec Tab) 40 mg PO DAILY [facility] Last Admin: 09/07/16 09:19 Dose: 40 mg Risperidone (Risperdal Tab) 0.5 mg PO Q8 [facility] Last Admin: 09/07/16 09:19 Dose: 0.5 mg Sevelamer HCl (Renagel) 800 mg PO TID [facility] Last Admin: 09/07/16 09:19 Dose: 800 mg Trimethoprim/Sulfamethoxazole (Bactrim Ds Tab) 1 tab PO Q12 [facility] Last Admin: 09/07/16 09:18 Dose: 1 tab Zolpidem Tartrate (Ambien) 5 mg PO HS PRN PRN Reason: Insomnia Last Admin: 09/07/16 01:13 Dose: 5 mg - Labs Labs: 09/06/16 08:15 09/06/16 08:15 APTT 29.9 SECONDS (23.3-32.5) 09/02/16 09:45
--- NOTE | 2016-09-07 11:13 | CP.PCM.CON ---
<Constance Patel - Last Filed: 09/07/16 11:22> History of Present Illness - History of Present Illness History of Present Illness: GENERAL SURGERY CONSULT NOTE FOR DR. MILLER 60yo F with PMHx of DM, HTN, schizophrenia, CHF, COPD, ESRD on dialysis presented to the ED on 09/02/16 for abdominal pain and inability to tolerate PO intake. She also had vomiting and generalized body aches. She was admitted for abdominal pain likely secondary to gastroparesis, infected right foot ulcer, cellulitis. She was found to have Klebsiella UTI and blood cx positive for coagulase negative staph. She was on Tigecycline but had to be switched to PO Bactrim due to lack of IV access. Surgery was consulted to place a femoral central line for continuation of IV Abx. PMHx: DM, HTN, hyperlipidemia, asthma, bipolar, schizophrenia, CHF, COPD, depression, Charcot foot, end stage renal disease on dialysis MWF Surgeries: appendectomy, hernia repair, tonsillectomy, C section, AV Fistula Allergies: cipro, shellfish Review of Systems - Review of Systems All systems: reviewed and no additional remarkable complaints except (as per HPI ) Past Patient History - Infectious Disease Hx of Infectious Diseases: None - Tetanus Immunizations Tetanus Immunization: Unknown - Past Medical History & Family History Past Medical History?: Yes - Past Social History Smoking Status: Never Smoked - CARDIAC Hx Cardiac Disorders: Yes Hx Congestive Heart Failure: Yes Hx Hypercholesterolemia: Yes Hx Hypertension: Yes Hx Peripheral Edema: Yes - PULMONARY Hx Respiratory Disorders: Yes Hx Asthma: Yes Hx Bronchitis: Yes Hx Chronic Obstructive Pulmonary Disease (COPD): Yes Hx Pneumonia: Yes - NEUROLOGICAL Hx Neurological Disorder: No - HEENT Hx HEENT Problems: Yes Other/Comment: uses reading glass - RENAL Hx Chronic Kidney Disease: Yes Hx Dialysis: Yes Type of Dialysis Access: AV shunt L arm Date of Last Dialysis Treatment: 08/31/16 Hx Kidney Stones: No Hx Neurogenic Bladder: No Hx Pyelonephritis: No Hx Renal (Kidney) Cancer: No Hx Renal Failure: Yes - ENDOCRINE/METABOLIC Hx Endocrine Disorders: Yes Hx Diabetes Mellitus Type 2: Yes - HEMATOLOGICAL/ONCOLOGICAL Hx Blood Disorders: Yes Hx Anemia: Yes Hx Human Immunodeficiency Virus (HIV): No - INTEGUMENTARY Hx Dermatological Problems: Yes Other/Comment: Right foot pressure ulcer - MUSCULOSKELETAL/RHEUMATOLOGICAL Hx Musculoskeletal Disorders: Yes Hx Falls: Yes - GASTROINTESTINAL Hx Gastrointestinal Disorders: Yes Other/Comment: Gastroparesis - GENITOURINARY/GYNECOLOGICAL Hx Genitourinary Disorders: Yes Hx Urinary Tract Infection: Yes - PSYCHIATRIC Hx Psychophysiologic Disorder: Yes Hx Anxiety: Yes Hx Bipolar Disorder: Yes Hx Depression: Yes Hx Schizophrenia: Yes Hx Substance Use: No - SURGICAL HISTORY Hx Surgeries: Yes Hx Appendectomy: Yes Hx Arteriovenous Shunt: Yes Hx Section: Yes Hx Herniorrhaphy: Yes Hx Tonsillectomy: Yes Hx Vascular Access Device: Yes - ANESTHESIA Hx Anesthesia: Yes Hx Anesthesia Reactions: No Hx Malignant Hyperthermia: No Has any member of the family had a problem w/ anesthesia?: No Meds Allergies/Adverse Reactions: Allergies Allergy/AdvReac Type Severity Reaction Status Date / Time ciprofloxacin [From Cipro] Allergy RASH Verified 09/01/16 17:56 ciprofloxacin HCl Allergy RASH Verified 09/01/16 17:56 [From Cipro] shellfish derived Allergy RASH Verified 09/01/16 17:56 - Medications Medications: Current Medications Amlodipine Besylate (Norvasc) 5 mg PO DAILY [facility] Last Admin: 09/06/16 08:37 Dose: 5 mg Aspirin (Ecotrin) 81 mg PO DAILY [facility] Last Admin: 09/07/16 09:19 Dose: 81 mg Bisoprolol Fumarate (Zebeta) 5 mg PO DAILY [facility] Last Admin: 09/06/16 08:38 Dose: 5 mg Clonidine HCl (Catapres) 0.1 mg PO DAILY [facility] Last Admin: 09/06/16 08:38 Dose: 0.1 mg Doxercalciferol (Hectorol) 2 mcg IV [facility] Last Admin: 09/05/16 09:59 Dose: 2 mcg Epoetin Isreal (Procrit) 10,000 unit IV MWF [facility] Stop: 09/10/16 23:59 Last Admin: 09/05/16 10:00 Dose: 10,000 unit Ferrous Sulfate (Feosol) 325 mg PO BIDWM [facility] Last Admin: 09/07/16 09:19 Dose: 325 mg Heparin Sodium (Porcine) (Heparin) 5,000 units SC Q8 [facility] PRN Reason: Protocol Last Admin: 09/07/16 09:20 Dose: 5,000 units Hydralazine HCl (Apresoline) 25 mg PO BID [facility] Last Admin: 09/06/16 16:55 Dose: 25 mg Tigecycline 50 mg/ Sodium (Chloride) 100 mls @ 100 mls/hr IVPB Q12@0200,1400 [facility] Last Admin: 09/07/16 02:20 Dose: Not Given Insulin Human Regular (Humulin R) 0 units SC ACHS [facility] PRN Reason: Protocol Last Admin: 09/07/16 06:46 Dose: Not Given Metoclopramide HCl (Reglan) 10 mg IVPB Q6 PRN PRN Reason: Nausea/Vomiting Last Admin: 09/03/16 09:03 Dose: 10 mg Mupirocin (Bactroban Ointment) 1 applic TOP DAILY [facility] Last Admin: 09/07/16 09:18 Dose: 1 applic Ondansetron HCl (Zofran Inj) 4 mg IVP Q8 PRN PRN Reason: Nausea/Vomiting Last Admin: 09/04/16 16:45 Dose: 4 mg Pantoprazole Sodium (Protonix Ec Tab) 40 mg PO DAILY [facility] Last Admin: 09/07/16 09:19 Dose: 40 mg Risperidone (Risperdal Tab) 0.5 mg PO Q8 [facility] Last Admin: 09/07/16 09:19 Dose: 0.5 mg Sevelamer HCl (Renagel) 800 mg PO TID [facility] Last Admin: 09/07/16 09:19 Dose: 800 mg Trimethoprim/Sulfamethoxazole (Bactrim Ds Tab) 1 tab PO Q12 [facility] Last Admin: 09/07/16 09:18 Dose: 1 tab Zolpidem Tartrate (Ambien) 5 mg PO HS PRN PRN Reason: Insomnia Last Admin: 09/07/16 01:13 Dose: 5 mg Physical Exam - Constitutional Appears: Non-toxic, No Acute Distress - Eye Exam Eye Exam: EOMI, Normal appearance - Respiratory Exam Respiratory Exam: NORMAL BREATHING PATTERN. absent: Respiratory Distress - Cardiovascular Exam Cardiovascular Exam: +S1, +S2 - GI/Abdominal Exam GI & Abdominal Exam: Soft. absent: Tenderness - Extremities Exam Additional comments: Left AV fistula +thrill, + bruit - Neurological Exam Neurological exam: Alert - Psychiatric Exam Psychiatric exam: Normal Affect, Normal Mood - Skin Skin Exam: Dry, Normal Color, Warm Results - Vital Signs Recent Vital Signs: Last Vital Signs Temp 98.3 F 09/07/16 09:00 Pulse 56 L 09/07/16 09:00 Resp 20 09/07/16 09:00 BP 153/64 H 09/07/16 09:00 Pulse Ox 99 09/07/16 09:00 - Labs Result Diagrams: 09/06/16 08:15 09/06/16 08:15 Labs: Laboratory Results - last 24 hr 09/06/16 09/06/16 09/06/16 11:11 11:17 17:30 POC Glucose (mg/dL) 214 H 137 H Urine Color Cindy Urine Clarity Turbid Urine pH 6.0 Ur Specific [place] 1.018 Urine Protein 100 Urine Glucose (UA) Neg Urine Ketones Negative Urine Blood Moderate Urine Nitrate Negative Urine Bilirubin Negative Urine Urobilinogen 0.2-1.0 Ur Leukocyte Esterase Large Urine RBC (Auto) 128 H Urine WBC Clumps (Auto) Many H Urine Microscopic WBC 6036 H Ur Squamous Epith Cells 4 Urine Bacteria Few H 09/06/16 09/07/16 22:23 06:38 POC Glucose (mg/dL) 199 H 116 H Urine Color Urine Clarity Urine pH Ur Specific [place] Urine Protein Urine Glucose (UA) Urine Ketones Urine Blood Urine Nitrate Urine Bilirubin Urine Urobilinogen Ur Leukocyte Esterase Urine RBC (Auto) Urine WBC Clumps (Auto) Urine Microscopic WBC Ur Squamous Epith Cells Urine Bacteria Assessment & Plan - Assessment and Plan (Free Text) Assessment: 60yo F with PMHx of DM, HTN, schizophrenia, CHF, COPD, ESRD on dialysis found to have UTI and bacteremia. Surgery is consulted for central line placement for IV antibiotics - Afebrile, VSS - Ordered stat coags to check PT/INR prior to placing line - If WNL, will place femoral central line at bedside - Discussed plan with Dr. Angela Patel PGY-2 <Sea Miller - Last Filed: 09/07/16 11:36> History of Present Illness - History of Present Illness History of Present Illness: Patient was seen and examined at the bedside with resident's. Agree with resident's note above Meds - Medications Medications: Current Medications Amlodipine Besylate (Norvasc) 5 mg PO DAILY [facility] Last Admin: 09/06/16 08:37 Dose: 5 mg Aspirin (Ecotrin) 81 mg PO DAILY [facility] Last Admin: 09/07/16 09:19 Dose: 81 mg Bisoprolol Fumarate (Zebeta) 5 mg PO DAILY [facility] Last Admin: 09/06/16 08:38 Dose: 5 mg Clonidine HCl (Catapres) 0.1 mg PO DAILY [facility] Last Admin: 09/06/16 08:38 Dose: 0.1 mg Doxercalciferol (Hectorol) 2 mcg IV [facility] Last Admin: 09/05/16 09:59 Dose: 2 mcg Epoetin Isreal (Procrit) 10,000 unit IV [facility] Stop: 09/10/16 23:59 Last Admin: 09/05/16 10:00 Dose: 10,000 unit Ferrous Sulfate (Feosol) 325 mg PO BIDWM [facility] Last Admin: 09/07/16 09:19 Dose: 325 mg Heparin Sodium (Porcine) (Heparin) 5,000 units SC Q8 [facility] PRN Reason: Protocol Last Admin: 09/07/16 09:20 Dose: 5,000 units Hydralazine HCl (Apresoline) 25 mg PO BID [facility] Last Admin: 09/06/16 16:55 Dose: 25 mg Tigecycline 50 mg/ Sodium (Chloride) 100 mls @ 100 mls/hr IVPB Q12@0200,1400 [facility] Last Admin: 09/07/16 02:20 Dose: Not Given Insulin Human Regular (Humulin R) 0 units SC ACHS [facility] PRN Reason: Protocol Last Admin: 09/07/16 06:46 Dose: Not Given Metoclopramide HCl (Reglan) 10 mg IVPB Q6 PRN PRN Reason: Nausea/Vomiting Last Admin: 09/03/16 09:03 Dose: 10 mg Mupirocin (Bactroban Ointment) 1 applic TOP DAILY [facility] Last Admin: 09/07/16 09:18 Dose: 1 applic Ondansetron HCl (Zofran Inj) 4 mg IVP Q8 PRN PRN Reason: Nausea/Vomiting Last Admin: 09/04/16 16:45 Dose: 4 mg Pantoprazole Sodium (Protonix Ec Tab) 40 mg PO DAILY [facility] Last Admin: 09/07/16 09:19 Dose: 40 mg Risperidone (Risperdal Tab) 0.5 mg PO Q8 [facility] Last Admin: 09/07/16 09:19 Dose: 0.5 mg Sevelamer HCl (Renagel) 800 mg PO TID [facility] Last Admin: 09/07/16 09:19 Dose: 800 mg Trimethoprim/Sulfamethoxazole (Bactrim Ds Tab) 1 tab PO Q12 [facility] Last Admin: 09/07/16 09:18 Dose: 1 tab Zolpidem Tartrate (Ambien) 5 mg PO HS PRN PRN Reason: Insomnia Last Admin: 09/07/16 01:13 Dose: 5 mg Results - Vital Signs Recent Vital Signs: Last Vital Signs Temp 98.3 F 09/07/16 09:00 Pulse 56 L 09/07/16 09:00 Resp 20 09/07/16 09:00 BP 153/64 H 09/07/16 09:00 Pulse Ox 99 09/07/16 09:00 - Labs Result Diagrams: 09/06/16 08:15 09/06/16 08:15 Labs: Laboratory Results - last 24 hr 09/06/16 09/06/16 09/06/16 11:17 17:30 22:23 POC Glucose (mg/dL) 137 H 199 H Urine Color Cindy Urine Clarity Turbid Urine pH 6.0 Ur Specific [place] 1.018 Urine Protein 100 Urine Glucose (UA) Neg Urine Ketones Negative Urine Blood Moderate Urine Nitrate Negative Urine Bilirubin Negative Urine Urobilinogen 0.2-1.0 Ur Leukocyte Esterase Large Urine RBC (Auto) 128 H Urine WBC Clumps (Auto) Many H Urine Microscopic WBC 6036 H Ur Squamous Epith Cells 4 Urine Bacteria Few H 09/07/16 06:38 POC Glucose (mg/dL) 116 H Urine Color Urine Clarity Urine pH Ur Specific [place] Urine Protein Urine Glucose (UA) Urine Ketones Urine Blood Urine Nitrate Urine Bilirubin Urine Urobilinogen Ur Leukocyte Esterase Urine RBC (Auto) Urine WBC Clumps (Auto) Urine Microscopic WBC Ur Squamous Epith Cells Urine Bacteria Assessment & Plan - Assessment and Plan (Free Text) Plan: - Will place Central line if PT/PTT/INR is normal - Continue care as per medical team
[2016-09-07 11:47] LABS: HEMATOCRIT 28.8 % (34.0-47.0); MEAN CORPUSCULAR HGB CONC 31.3 g/dL (33.0-37.0); RED CELL DISTRIBUTION WIDTH 17.4 % (11.5-14.5); WHITE BLOOD COUNT 16.6 K/uL (4.8-10.8)
[2016-09-07 11:49] LABS: PARTIAL THROMBOPLASTIN TIME 26.6 SECONDS (23.3-32.5)
--- NOTE | 2016-09-07 14:07 | CP.PCM.PN ---
Subjective - Date & Time of Evaluation Date of Evaluation: 09/07/16 Time of Evaluation: 08:00 - Subjective Subjective: awaiting TLC cont to c/o weakness Objective - Vital Signs/Intake and Output Vital Signs (last 24 hours): Temp Pulse Resp BP Pulse Ox 98.3 F 56 L 20 153/64 H 99 09/07/16 09:00 09/07/16 09:00 09/07/16 09:00 09/07/16 09:00 09/07/16 09:00 - Medications Medications: Current Medications Amlodipine Besylate (Norvasc) 5 mg PO DAILY [facility] Last Admin: 09/06/16 08:37 Dose: 5 mg Aspirin (Ecotrin) 81 mg PO DAILY [facility] Last Admin: 09/07/16 09:19 Dose: 81 mg Bisoprolol Fumarate (Zebeta) 5 mg PO DAILY [facility] Last Admin: 09/06/16 08:38 Dose: 5 mg Clonidine HCl (Catapres) 0.1 mg PO DAILY [facility] Last Admin: 09/06/16 08:38 Dose: 0.1 mg Doxercalciferol (Hectorol) 2 mcg IV [facility] Last Admin: 09/05/16 09:59 Dose: 2 mcg Epoetin Isreal (Procrit) 10,000 unit IV MWF [facility] Stop: 09/10/16 23:59 Last Admin: 09/05/16 10:00 Dose: 10,000 unit Ferrous Sulfate (Feosol) 325 mg PO BIDWM [facility] Last Admin: 09/07/16 09:19 Dose: 325 mg Heparin Sodium (Porcine) (Heparin) 5,000 units SC Q8 [facility] PRN Reason: Protocol Last Admin: 09/07/16 09:20 Dose: 5,000 units Hydralazine HCl (Apresoline) 25 mg PO BID [facility] Last Admin: 09/06/16 16:55 Dose: 25 mg Tigecycline 50 mg/ Sodium (Chloride) 100 mls @ 100 mls/hr IVPB Q12@0200,1400 [facility] Last Admin: 09/07/16 02:20 Dose: Not Given Insulin Human Regular (Humulin R) 0 units SC ACHS [facility] PRN Reason: Protocol Last Admin: 09/07/16 12:00 Dose: 3 units Metoclopramide HCl (Reglan) 10 mg IVPB Q6 PRN PRN Reason: Nausea/Vomiting Last Admin: 09/03/16 09:03 Dose: 10 mg Mupirocin (Bactroban Ointment) 1 applic TOP DAILY [facility] Last Admin: 09/07/16 09:18 Dose: 1 applic Ondansetron HCl (Zofran Inj) 4 mg IVP Q8 PRN PRN Reason: Nausea/Vomiting Last Admin: 09/04/16 16:45 Dose: 4 mg Pantoprazole Sodium (Protonix Ec Tab) 40 mg PO DAILY [facility] Last Admin: 09/07/16 09:19 Dose: 40 mg Risperidone (Risperdal Tab) 0.5 mg PO Q8 [facility] Last Admin: 09/07/16 09:19 Dose: 0.5 mg Sevelamer HCl (Renagel) 800 mg PO TID [facility] Last Admin: 09/07/16 13:03 Dose: 800 mg Trimethoprim/Sulfamethoxazole (Bactrim Ds Tab) 1 tab PO Q12 [facility] Last Admin: 09/07/16 09:18 Dose: 1 tab Zolpidem Tartrate (Ambien) 5 mg PO HS PRN PRN Reason: Insomnia Last Admin: 09/07/16 01:13 Dose: 5 mg - Labs Labs: 09/07/16 11:26 09/06/16 08:15 PT 13.3 SECONDS (9.6-11.2) H 09/07/16 11:39 INR 1.28 (0.92-1.08) H 09/07/16 11:39 APTT 26.6 SECONDS (23.3-32.5) 09/07/16 11:39 - Constitutional Appears: Non-toxic, No Acute Distress, Chronically Ill - Head Exam Head Exam: NORMOCEPHALIC - Eye Exam Eye Exam: PERRL. 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
--- NOTE | 2016-09-07 17:19 | PCM.PROC ---
Procedures Attestation:: I certify that I have explained the specified Operation(s) or Procedure(s), risks, benefits and reasonable alternatives to the Patient and/or other person responsible. The opportunity was given to ask questions and all questions answered - Central Line Placement Right Femoral Triple Lumen Catheter Aseptic technique was employed throughout the procedure: Hand Hygiene done prior to procedure, Full sterile barriers (mask, hair cover, sterile gown, sterile gloves), Full body sterile drape, Chloraprep Antiseptic: 2 minute prep for Femoral CVP Time Out Performed: Yes Pt. Placed on Pulse Ox Monitor: No Central Line Prep: Chlorhexidine-Alcohol Combination Local Anesthesia Used: Lidocaine 1% Amount of Anesthesia Used (mls): 3 Ultrasound Used for Placement: No Central Line Lumen Inserted: triple Post Procedure: Sutured in Place, Good Blood Return (wire removed, good blood flow return from all 3 ports), All Ports Aspirated, Flushed, Capped, Sterile Dressing Applied Secured by: Suture Post procedure dressing: Clear vapor permeable, Chlorhexidine disc (Biopatch) Post Procedure X-Ray: No Patient Tolerated Procedure: Well Immediate Complications: None Additional Comments: Consent obtained from daughter via telephone Dr. Miller was present for entire procedure.
[2016-09-07] MEDS: EPOETIN ALFA 10,000 UNIT/ML ML IV SCH (18:17)
--- NOTE | 2016-09-08 03:11 | PN ---
DATE: 09/07/2016 The patient is located in room 655, bed 2. HISTORY OF PRESENT ILLNESS: The patient is a 60-year-old elderly female with a past medical history significant for long-standing hypertension, diabetes, end-stage renal disease on hemodialysi s 3 times a week, Saturday, Saturday and Saturday, with Charcot foot, recurrent UTIs, questionable neur ogenic bladder with urinary retention, who was recently admitted to [facility], treated for UTI, and then the patient came back to [facility] with chief complaints of feeling weak and tired, and had dysuria. The patient was found to have again a UTI and identified as gram-n egative rods and Klebseilla pneumonia with multidrug resistant organism. The patient denies any head ache, dizziness. Denies any chest pain, palpitations. Still complains of weak and tired. PHYSICAL EXAMINATION: VITAL SIGNS: As follows: Blood pressure this morning 153/64, pulse 56, respirations 20, temperature 98.3, height 5 feet 3 inches, and weight is 162 pounds. GENERAL: The patient is a 60-year-old elderly female, well built, well nourished, not in any distres s. HEENT: Pupils normally reactive to light and accommodation. Conjunctivae pink. Sclerae anicteric. Tongue is moist. NECK: Trachea is midline. LUNGS: Symmetric on both sides. Bilateral breath sounds present. Clear on auscultation. CARDIOVASCULAR: [place] in the fifth intercostal space, midclavicular line. S1, S2 audible. No murmur or gallop. ABDOMEN: Normal in appearance, soft, tympanic. No guarding, no rigidity. No hepatosplenomegaly. CENTRAL NERVOUS SYSTEM: The patient is alert, awake, oriented x 2-3. Cranial nerves II-XII grossly intact. Sensory and motor system is within normal limits. EXTREMITIES: No cyanosis, no clubbing, no edema. The patient has a dressing to the right foot with a Charcot foot. CURRENT MEDICATIONS: Include as follows: Ambien 5 mg at bedtime, hydralazine 25 mg p.o. b.i.d., Ba ctroban ointment topical daily, Catapres 0.1 mg p.o. daily, Ecotrin 81 mg p.o. daily, Feosol 325 mg p .o. b.i.d., Hectorol 2 mcg IV Saturday, Saturday, Saturday, heparin 5000 units subQ q. 8 hours, Humulin R for sliding scale, Norvasc 5 mg p.o. daily, Procrit 10,000 units 3 times a week, Protonix 40 mg p.o . daily, Reglan 10 mg IV q. 6 hours for nausea and vomiting, Renagel 800 mg p.o. t.i.d., risperidone 0.5 mg p.o. q. 8 hours, tigecycline 50 mg IV, Zebeta 5 mg p.o. daily, and Bactrim 1 tablet p.o. q. 12 hours. LABORATORY DATA: Include as follows: As of 09/07/2016, WBC 16.6, hemoglobin 9, hematocrit is 28.8, p latelets 293. SUMMARY: The patient is a 60-year-old elderly female with history of hypertension, diabetes, anemia, psych disorder, end-stage renal disease, recurrent urinary tract infections, neurogenic bladder and urinary retention. 1. End-stage renal disease. Continue hemodialysis 3 times a week, Saturday, Saturday and Saturday. 2. Anemia secondary to renal failure. 3. Urosepsis secondary to gram-negative rods identified as a Klebsiella pneumoniae and sensitive to Bactrim and colistin. Continue antibiotics as per ID recommendations for hemodialysis today and we w ill follow with you. 4. We will add Nepro 1 can p.o. daily. Thank you for allowing me to participate in your patient's care. Linda Bernal MD cc: [id number] TT: 09/08/2016 03:11:49 Confirmation # [id number] Dictation # [id number] vn
[2016-09-08] MEDS: Insulin Regular 100 units/ml SC SCH ×4 (09:49→21:54)
[2016-09-08] MEDS: Pantoprazole 40 mg EC Tab PO SCH (09:50)
--- NOTE | 2016-09-08 19:36 | PN ---
DATE: 09/08/2016 SUBJECTIVE: The patient is seen today 09/08/2016. She had a central line last night. PHYSICAL EXAMINATION: VITAL SIGNS: Blood pressure , temperature , respiratory rate 20 and pulse 65. HEENT: Pupils equal, reactive to light. Normal appearing mucosa of the conjunctivae, oropharyngeal and nasal membrane mucosa. NECK: Supple, no JVD. No carotid bruit. No lymph node. No thyromegaly. CHEST AND LUNGS: Bilateral symmetrical expansion, good air exchange, no rales, no rhonchi. CARDIOVASCULAR: PMI not localized. S1, S2. No additional sounds. ABDOMEN: Normoactive bowel sounds, no tenderness, no organomegaly, no masses. EXTREMITIES: No cyanosis, no clubbing, no edema. CENTRAL NERVOUS SYSTEM: Alert, awake, oriented x 2. The patient has bilateral peripheral neuropathy , diabetic neuropathy. ASSESSMENT: 1. Urinary tract infection. 2. Urinary retention secondary to neurogenic bladder. 3. End-stage renal disease, on hemodialysis. 4. Type 2 diabetes mellitus. 5. Charcot joint of the right foot. PLAN: Continue current antibiotics as per infectious disease. The patient will need frequent cathet erization. We will discuss with case management for possible visiting nurse with biweekly catheteriz ation. Ray Thibodeaux MD cc: [id number] TT: 09/08/2016 19:35:30 Confirmation # [id number] Dictation # [id number] mn
[2016-09-09] MEDS: Insulin Regular 100 units/ml SC SCH ×4 (07:30→22:00)
[2016-09-09] MEDS: Pantoprazole 40 mg EC Tab PO SCH (09:33)
--- NOTE | 2016-09-09 12:57 | CP.PCM.PN ---
Subjective - Date & Time of Evaluation Date of Evaluation: 09/09/16 Time of Evaluation: 08:00 - Subjective Subjective: back on tygacil for UTI repeat culture still + weak but NAD Objective - Vital Signs/Intake and Output Vital Signs (last 24 hours): Temp Pulse Resp BP Pulse Ox 97.5 F L 62 20 150/90 100 09/09/16 08:38 09/09/16 09:32 09/09/16 08:38 09/09/16 09:32 09/09/16 08:38 - Medications Medications: Current Medications Amlodipine Besylate (Norvasc) 5 mg PO DAILY [facility] Last Admin: 09/09/16 09:32 Dose: 5 mg Aspirin (Ecotrin) 81 mg PO DAILY [facility] Last Admin: 09/09/16 09:30 Dose: 81 mg Bisoprolol Fumarate (Zebeta) 5 mg PO DAILY [facility] Last Admin: 09/09/16 09:33 Dose: 5 mg Clonidine HCl (Catapres) 0.1 mg PO DAILY [facility] Last Admin: 09/09/16 09:30 Dose: 0.1 mg Doxercalciferol (Hectorol) 2 mcg IV MWF [facility] Last Admin: 09/05/16 09:59 Dose: 2 mcg Epoetin Isreal (Procrit) 10,000 unit IV F [facility] Stop: 09/10/16 23:59 Last Admin: 09/07/16 18:17 Dose: 10,000 unit Ferrous Sulfate (Feosol) 325 mg PO BIDWM [facility] Last Admin: 09/09/16 09:30 Dose: 325 mg Heparin Sodium (Porcine) (Heparin) 5,000 units SC Q12 [facility] PRN Reason: Protocol Last Admin: 09/09/16 09:31 Dose: 5,000 units Hydralazine HCl (Apresoline) 25 mg PO BID [facility] Last Admin: 09/09/16 09:29 Dose: 25 mg Tigecycline 50 mg/ Sodium (Chloride) 100 mls @ 100 mls/hr IVPB Q12@0200,1400 [facility] Last Admin: 09/09/16 01:25 Dose: 100 mls/hr Insulin Human Regular (Humulin R) 0 units SC ACHS [facility] PRN Reason: Protocol Last Admin: 09/09/16 12:40 Dose: Not Given Metoclopramide HCl (Reglan) 10 mg IVPB Q6 PRN PRN Reason: Nausea/Vomiting Last Admin: 09/03/16 09:03 Dose: 10 mg Mupirocin (Bactroban Ointment) 1 applic TOP DAILY [facility] Last Admin: 09/09/16 09:29 Dose: 1 applic Ondansetron HCl (Zofran Inj) 4 mg IVP Q8 PRN PRN Reason: Nausea/Vomiting Last Admin: 09/04/16 16:45 Dose: 4 mg Pantoprazole Sodium (Protonix Ec Tab) 40 mg PO DAILY [facility] Last Admin: 09/09/16 09:33 Dose: 40 mg Risperidone (Risperdal Tab) 0.5 mg PO Q8 [facility] Last Admin: 09/09/16 09:33 Dose: 0.5 mg Sevelamer HCl (Renagel) 800 mg PO TID [facility] Last Admin: 09/09/16 09:33 Dose: 800 mg Zolpidem Tartrate (Ambien) 5 mg PO HS PRN PRN Reason: Insomnia Last Admin: 09/08/16 01:17 Dose: 5 mg - Labs Labs: 09/07/16 11:26 09/06/16 08:15 PT 13.3 SECONDS (9.6-11.2) H 09/07/16 11:39 INR 1.28 (0.92-1.08) H 09/07/16 11:39 APTT 26.6 SECONDS (23.3-32.5) 09/07/16 11:39 - Constitutional Appears: Non-toxic, Cachectic, Chronically Ill - Head Exam Head Exam: NORMOCEPHALIC - Eye Exam Eye Exam: absent: Scleral icterus - ENT Exam ENT Exam: Mucous Membranes Dry - Neck Exam Neck Exam: absent: Lymphadenopathy - Respiratory Exam Respiratory Exam: Decreased Breath Sounds, Rhonchi - Cardiovascular Exam Cardiovascular Exam: REGULAR RHYTHM, +S1, +S2 - GI/Abdominal Exam GI & Abdominal Exam: Distended, Soft - Rectal Exam Rectal Exam: Deferred - Exam Exam: NORMAL INSPECTION Assessment and Plan (1) HTN (hypertension) Status: Acute (2) Abdominal pain Status: Acute (3) 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
[2016-09-10] MEDS: Insulin Regular 100 units/ml SC SCH ×4 (07:30→22:00)
--- NOTE | 2016-09-10 07:53 | PN ---
DATE: 09/07/2016 SUBJECTIVE: The patient is seen today, 09/07/2016. She had a Patel catheter, and the patient was status post urine drainage 400 mL of urine. The patien t is currently on IV antibiotic. PHYSICAL EXAMINATION: VITAL SIGNS: She is afebrile, blood pressure 153/64, temperature 98.3, respiratory rate 20, and puls e 56. HEENT: Pupils equal, reactive to light. Slightly pale mucosa of the conjunctivae. NECK: Supple, no JVD, no carotid bruit, no lymph node, no thyromegaly. CHEST AND LUNGS: Showed good air exchange, no rales, no rhonchi. CARDIOVASCULAR: PMI not localized, S1, S2. No additional sounds. ABDOMEN: Normoactive bowel sounds, no tenderness, no organomegaly, no masses. CENTRAL NERVOUS SYSTEM: . ASSESSMENT: 1. Symptomatic urinary tract infection secondary to neurogenic bladder with urinary retention. 2. , on hemodialysis. 3. Hypertension. PLAN: We will plan for frequent catheterization. Continue current medications and IV antibiotics. The patient consultation for possible central line placement, as the patient does not have IV a ccess at the time of this examination. Ray Thibodeaux MD cc: [phone] TT: 09/08/2016 03:42:46 Confirmation # [id number] Dictation # [id number]
[2016-09-10] MEDS: Pantoprazole 40 mg EC Tab PO SCH (08:47)
[2016-09-10] MEDS: Doxercalciferol 4 mcg/2 ml Inj IV SCH ×3 (10:26→12:58)
[2016-09-10] MEDS: EPOETIN ALFA 10,000 UNIT/ML ML IV SCH (10:27)
--- NOTE | 2016-09-10 10:58 | CP.PCM.PN ---
Subjective - Date & Time of Evaluation Date of Evaluation: 09/10/16 Time of Evaluation: 08:00 - Subjective Subjective: urine still + for gram neg rods iv rx in progress Objective - Vital Signs/Intake and Output Vital Signs (last 24 hours): Temp Pulse Resp BP Pulse Ox 98.4 F 57 L 20 130/76 96 09/10/16 08:21 09/10/16 08:21 09/10/16 08:21 09/10/16 08:21 09/10/16 08:21 - Medications Medications: Current Medications Amlodipine Besylate (Norvasc) 5 mg PO DAILY [facility] Last Admin: 09/09/16 09:32 Dose: 5 mg Aspirin (Ecotrin) 81 mg PO DAILY [facility] Last Admin: 09/10/16 08:47 Dose: 81 mg Bisoprolol Fumarate (Zebeta) 5 mg PO DAILY [facility] Last Admin: 09/09/16 09:33 Dose: 5 mg Clonidine HCl (Catapres) 0.1 mg PO DAILY [facility] Last Admin: 09/09/16 09:30 Dose: 0.1 mg Doxercalciferol (Hectorol) 2 mcg IV MWF [facility] Last Admin: 09/10/16 10:26 Dose: 2 mcg Epoetin Isreal (Procrit) 10,000 unit IV MWF [facility] Stop: 09/10/16 23:59 Last Admin: 09/10/16 10:27 Dose: 10,000 unit Ferrous Sulfate (Feosol) 325 mg PO BIDWM [facility] Last Admin: 09/10/16 08:46 Dose: 325 mg Heparin Sodium (Porcine) (Heparin) 5,000 units SC Q12 [facility] PRN Reason: Protocol Last Admin: 09/10/16 08:48 Dose: 5,000 units Hydralazine HCl (Apresoline) 25 mg PO BID [facility] Last Admin: 09/09/16 17:11 Dose: 25 mg Tigecycline 50 mg/ Sodium (Chloride) 100 mls @ 100 mls/hr IVPB Q12@0200,1400 [facility] Last Admin: 09/10/16 01:31 Dose: 100 mls/hr Insulin Human Regular (Humulin R) 0 units SC ACHS [facility] PRN Reason: Protocol Last Admin: 09/10/16 07:30 Dose: Not Given Metoclopramide HCl (Reglan) 10 mg IVPB Q6 PRN PRN Reason: Nausea/Vomiting Last Admin: 09/03/16 09:03 Dose: 10 mg Mupirocin (Bactroban Ointment) 1 applic TOP DAILY [facility] Last Admin: 09/10/16 08:46 Dose: 1 applic Ondansetron HCl (Zofran Inj) 4 mg IVP Q8 PRN PRN Reason: Nausea/Vomiting Last Admin: 09/04/16 16:45 Dose: 4 mg Pantoprazole Sodium (Protonix Ec Tab) 40 mg PO DAILY [facility] Last Admin: 09/10/16 08:47 Dose: 40 mg Risperidone (Risperdal Tab) 0.5 mg PO Q8 [facility] Last Admin: 09/10/16 08:47 Dose: 0.5 mg Sevelamer HCl (Renagel) 800 mg PO TID [facility] Last Admin: 09/10/16 08:46 Dose: 800 mg Zolpidem Tartrate (Ambien) 5 mg PO HS PRN PRN Reason: Insomnia Last Admin: 09/08/16 01:17 Dose: 5 mg - Labs Labs: 09/07/16 11:26 09/06/16 08:15 PT 13.3 SECONDS (9.6-11.2) H 09/07/16 11:39 INR 1.28 (0.92-1.08) H 09/07/16 11:39 APTT 26.6 SECONDS (23.3-32.5) 09/07/16 11:39 - Constitutional Appears: Chronically Ill - Head Exam Head Exam: NORMOCEPHALIC - Eye Exam Eye Exam: absent: Scleral icterus - ENT Exam ENT Exam: Mucous Membranes Dry - Neck Exam Neck Exam: absent: Lymphadenopathy - Respiratory Exam Respiratory Exam: Decreased Breath Sounds - Cardiovascular Exam Cardiovascular Exam: REGULAR RHYTHM, +S1, +S2 - GI/Abdominal Exam GI & Abdominal Exam: Distended, Soft Assessment and Plan (1) HTN (hypertension) Status: Acute (2) Abdominal pain Status: Acute (3) 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
[2016-09-10 13:45] LABS: HEMATOCRIT 27.8 % (34.0-47.0); MEAN CORPUSCULAR HEMOGLOBIN 30.6 pg (27.0-31.0); MEAN CORPUSCULAR HGB CONC 32.7 g/dL (33.0-37.0); RED CELL DISTRIBUTION WIDTH 17.9 % (11.5-14.5); WHITE BLOOD COUNT 14.4 K/uL (4.8-10.8)
[2016-09-10 13:46] LABS: MEAN CELL VOLUME 93.4 fl (81.0-99.0)
[2016-09-10 13:54] LABS: POTASSIUM 3.3 MMOL/L (3.6-5.0)
[2016-09-10] MEDS ORDERED: Potassium Chloride 20 mEq ER Tab PO ONE (14:02)
--- NOTE | 2016-09-10 19:00 | CP.PCM.PN ---
Subjective - Date & Time of Evaluation Date of Evaluation: 09/10/16 Time of Evaluation: 18:59 - Subjective Subjective: pt seen and examined, follow up consult is dictated #[id number] s/p hd today, uf 3.5 lit Objective - Vital Signs/Intake and Output Vital Signs (last 24 hours): Temp Pulse Resp BP Pulse Ox 97.6 F 63 20 187/78 H 100 09/10/16 16:53 09/10/16 16:53 09/10/16 16:53 09/10/16 16:53 09/10/16 16:53 - Medications Medications: Current Medications Amlodipine Besylate (Norvasc) 5 mg PO DAILY [facility] Last Admin: 09/10/16 16:33 Dose: 5 mg Aspirin (Ecotrin) 81 mg PO DAILY [facility] Last Admin: 09/10/16 08:47 Dose: 81 mg Bisoprolol Fumarate (Zebeta) 5 mg PO DAILY [facility] Last Admin: 09/10/16 16:34 Dose: 5 mg Clonidine HCl (Catapres) 0.1 mg PO DAILY [facility] Last Admin: 09/10/16 16:31 Dose: 0.1 mg Doxercalciferol (Hectorol) 2 mcg IV MWF [facility] Last Admin: 09/10/16 12:56 Dose: 2 mcg Epoetin Isreal (Procrit) 10,000 unit IV MWF [facility] Stop: 09/10/16 23:59 Last Admin: 09/10/16 10:27 Dose: 10,000 unit Ferrous Sulfate (Feosol) 325 mg PO BIDWM [facility] Last Admin: 09/10/16 16:32 Dose: 325 mg Heparin Sodium (Porcine) (Heparin) 5,000 units SC Q12 [facility] PRN Reason: Protocol Last Admin: 09/10/16 08:48 Dose: 5,000 units Hydralazine HCl (Apresoline) 25 mg PO BID [facility] Last Admin: 09/10/16 16:31 Dose: 25 mg Tigecycline 50 mg/ Sodium (Chloride) 100 mls @ 100 mls/hr IVPB Q12@0200,1400 [facility] Last Admin: 09/10/16 14:09 Dose: 100 mls/hr Insulin Human Regular (Humulin R) 0 units SC ACHS [facility] PRN Reason: Protocol Last Admin: 09/10/16 16:32 Dose: 1 units Metoclopramide HCl (Reglan) 10 mg IVPB Q6 PRN PRN Reason: Nausea/Vomiting Last Admin: 09/03/16 09:03 Dose: 10 mg Mupirocin (Bactroban Ointment) 1 applic TOP DAILY [facility] Last Admin: 09/10/16 08:46 Dose: 1 applic Ondansetron HCl (Zofran Inj) 4 mg IVP Q8 PRN PRN Reason: Nausea/Vomiting Last Admin: 09/04/16 16:45 Dose: 4 mg Pantoprazole Sodium (Protonix Ec Tab) 40 mg PO DAILY [facility] Last Admin: 09/10/16 08:47 Dose: 40 mg Risperidone (Risperdal Tab) 0.5 mg PO Q8 [facility] Last Admin: 09/10/16 16:31 Dose: 0.5 mg Sevelamer HCl (Renagel) 800 mg PO TID [facility] Last Admin: 09/10/16 16:30 Dose: 800 mg Zolpidem Tartrate (Ambien) 5 mg PO HS PRN PRN Reason: Insomnia Last Admin: 09/08/16 01:17 Dose: 5 mg - Labs Labs: 09/10/16 13:40 09/10/16 13:40 PT 13.3 SECONDS (9.6-11.2) H 09/07/16 11:39 INR 1.28 (0.92-1.08) H 09/07/16 11:39 APTT 26.6 SECONDS (23.3-32.5) 09/07/16 11:39
[2016-09-10 22:53] LABS: IRON 33 ug/dL (37-170)
[2016-09-11 07:04] LABS: MEAN CELL VOLUME 96.5 fl (81.0-99.0); MEAN CORPUSCULAR HEMOGLOBIN 30.6 pg (27.0-31.0); MEAN CORPUSCULAR HGB CONC 31.7 g/dL (33.0-37.0); RED CELL DISTRIBUTION WIDTH 18.2 % (11.5-14.5); WHITE BLOOD COUNT 13.2 K/uL (4.8-10.8)
[2016-09-11 07:15] LABS: CALCIUM 8.9 mg/dL (8.4-10.2)
[2016-09-11] MEDS: Insulin Regular 100 units/ml SC SCH ×4 (07:30→22:36)
[2016-09-11] MEDS: Pantoprazole 40 mg EC Tab PO SCH (08:55)
[2016-09-11] MEDS: Multivitamin Vitamin B Complex (Nephro-Vite) Tab PO SCH (08:58)
--- NOTE | 2016-09-11 09:18 | PN ---
DATE: 09/10/2016 The patient is located in room 655, bed 2. REQUESTED BY: Dr. Ray Thibodeaux. REASON FOR FOLLOWUP: End-stage renal disease, continuation of hemodialysis. HISTORY OF PRESENT ILLNESS: The patient is a 60-year-old, elderly female with a past medica l history significant for longstanding hypertension, diabetes, end-stage renal disease, and psych dis order, Charcot foot and recurrent urinary tract infection with questionable neurogenic urinary bladde r. She was admitted with feeling weak, tired with dysuria and the patient was found to have gram-nega tive rods in the urine, subsequently identified and Klebsiella pneumoniae, multidrug resistant organi sm. Also blood culture is positive for Staph coag negative. The patient is not in acute distress, s till complains of feeling weak and tired. The patient underwent hemodialysis today, had ultrafiltrat ion about 3.5 liters. The patient is not in acute distress, no chest pain, no palpitations, no fever , and no cough. PHYSICAL EXAMINATION: VITAL SIGNS: This afternoon as follows: Blood pressure 187/78, pulse 63, respirations 20, temperatu re 97.6, saturation 100%, height 5 feet 3 inches and weight is 162 pounds. GENERAL: The patient is a 60-year-old elderly female, moderately built, moderately nourishe d, not in acute distress. HEENT: Pupils normal and reactive to light and accommodation. Conjunctivae pink. Sclerae anicteric . Tongue is moist. NECK: Trachea is midline. LUNGS: Symmetric on both sides. Bilateral breath sounds present. Clear on auscultation. CARDIOVASCULAR: [place] in the fifth intercostal space midclavicular line. S1 and S2 audible. No murm ur or gallop. ABDOMEN: Normal in appearance, soft, tympanic. No guarding, no rigidity. No hepatosplenomegaly. CENTRAL NERVOUS SYSTEM: The patient is alert, awake, oriented x 2 to 3. Sensory and motor system is within normal limits. EXTREMITIES: No cyanosis, no clubbing, no edema. The patient has a dressing to the right foot. CURRENT MEDICATIONS: Include as follows: Ambien 5 mg at bedtime, hydralazine 25 mg p.o. b.i.d., tayo nidine 0.1 mg p.o. daily, Ecotrin 81 mg p.o. daily, Feosol 325 mg p.o. b.i.d., Hectorol 2 mcg 3 times a week, subcutaneous heparin 5000 q.12 hours, Humulin-R for sliding scale, Norvasc 5 mg daily, Procr it 10,000 units 3 times a week, Protonix 40 mg p.o. daily, Reglan 10 mg IV q. 6 hours, Renagel 800 mg p.o. t.i.d., risperidone 0.5 mg p.o. q. 8 hours and tigecycline 50 mg q. 12 hours, bisoprolol 5 mg p .o. daily, Zofran 4 mg IV q. 8 hours p.r.n. LABORATORY DATA: As of 09/10/2016, WBC 14.4, hemoglobin 9.1, hematocrit is 27.8, platelets 275. Sod ium 142, potassium 3.3, chloride 100, CO2 of 27, BUN 32, creatinine 2.3, glucose 136, calcium 9.0. T his chemistry is post-dialysis by report done at 1:40 p.m. Other reports: On repeat urine culture as of 09/06/2016 gram-negative rods. Blood culture as of 09/06/2016 negative day 3. SUMMARY: The patient is a 60-year-old, elderly female with a history of longstanding hypert ension, diabetes, end-stage renal disease, bipolar, recurrent urinary tract infection and Charcot rig ht foot, who was admitted with weakness and found to have gram-negative rods identified as a Klebsiel la pneumoniae and also blood culture positive for Staphylococcus coagulase negative on tigecycline wh o underwent hemodialysis this afternoon. 1. End-stage renal disease. Continue hemodialysis 3 times a week, Saturday, Saturday and Saturday. 2. Urinary tract infection with Klebsiella pneumoniae, multidrug-resistant. Continue antibiotics as per ID recommendation. 3. Anemia secondary to renal failure. We will continue Procrit. We will check iron, TIBC, ferritin and continue with Feosol and will add Nephrocaps 1 tablet daily. We will check iron, TIBC, ferritin with next hemodialysis. Thank you for allowing me to participate in your patient's care. The patient had hemodialysis this a fternoon and had UF of about 3.5 liters. Linda Bernal MD cc: [id number] TT: 09/11/2016 09:17:14 Confirmation # [id number] Dictation # [id number]
[2016-09-12] MEDS: Insulin Regular 100 units/ml SC SCH ×3 (07:25→16:26)
--- NOTE | 2016-09-12 07:49 | PN ---
DATE: 09/11/2016 SUBJECTIVE: She is not in any cardiopulmonary distress. PHYSICAL EXAMINATION VITAL SIGNS: Blood pressure 157/73, temperature 98.6, respiratory rate 20, and pulse is 56. HEENT: Pupils equal, reactive to light. Conjunctivae, oropharyngeal and nasal membrane mucosa. NECK: Supple, no JVD, no carotid bruit, no lymph node, no thyromegaly. CHEST AND LUNGS: Bilateral symmetrical expansion, good air exchange, no rales, no rhonchi. CARDIOVASCULAR: PMI not localized. S1, S2. No additional sounds. ABDOMEN: Normoactive bowel sounds, no tenderness, no organomegaly, no masses. EXTREMITIES: No cyanosis, no clubbing, no edema. CENTRAL NERVOUS SYSTEM: Alert, awake, oriented x 2. Moves all extremities equally. Decreased sensa tion of both lower extremities due to diabetic peripheral neuropathy. ASSESSMENT: Symptomatic urinary tract infection. She is currently on Tygacil. Neurogenic bladder w ith urinary frequency, urinary retention. Complicated type 2 diabetes mellitus. Diabetic neuropathy with Charcot joint of the right foot. PLAN: Continue current IV antibiotics and discharge planning for subacute . Ray Thibodeaux MD cc: 167 TT: 09/11/2016 23:23:07 Confirmation # [id number] Dictation # [id number] tereso
[2016-09-12 08:13] LABS: MEAN CELL VOLUME 96.8 fl (81.0-99.0); MEAN CORPUSCULAR HEMOGLOBIN 30.1 pg (27.0-31.0); MEAN CORPUSCULAR HGB CONC 31.1 g/dL (33.0-37.0); RED CELL DISTRIBUTION WIDTH 18.6 % (11.5-14.5); WHITE BLOOD COUNT 14.6 K/uL (4.8-10.8)
[2016-09-12 08:20] LABS: BILIRUBIN,TOTAL 0.4 mg/dl (0.2-1.3); TOTAL PROTEIN 6.4 G/DL (6.3-8.2)
[2016-09-12 08:24] LABS: ALB/GLOB RATIO 0.9 (1.0-2.1); POTASSIUM 5.8 MMOL/L (3.6-5.0)
--- NOTE | 2016-09-12 08:26 | PN ---
DATE: 09/10/2016 The patient is seen today, 09/10/2016. States she still has a Patel catheter, and she is still on ti gecycline. She is still on . Blood pressure is 157/ , 7.6, respiratory rate 20, and pulse 63. HEENT: Pupils equal, reactive to light. Normal-appearing mucosa of the conjunctivae, oropharyngeal, and nasal membrane mucosa. NECK: Supple, no JVD, no carotid bruit, no lymph node, no thyromegaly. CHEST AND LUNGS: Bilateral symmetrical expansion. Good air exchange, no rales, no rhonchi. CARDIOVASCULAR SYSTEM: PMI not localized. S1, S2. No additional sounds. ABDOMEN: Normoactive bowel sounds, no tenderness, no organomegaly, no masses. EXTREMITIES: No cyanosis, no clubbing, no edema. CENTRAL NERVOUS SYSTEM: Alert, awake, oriented x 2. The patient has bilateral lower extremity . PLAN: 1. Continue current medicine and hemodialysis treating the recurrent urinary tract infections. 2. Continue hemodialysis. 3. Physical therapy and evaluate for subacute rehabilitation. twice weekly. Ray Thibodeaux MD cc: 167 TT: 09/11/2016 09:15:53 Confirmation # [id number] Dictation # [id number]
--- NOTE | 2016-09-12 08:52 | CP.PCM.PN ---
Subjective - Date & Time of Evaluation Date of Evaluation: 09/12/16 Time of Evaluation: 07:40 - Subjective Subjective: 60 y/o female seen at bedside this morning concerning right foot plantar ulceration secondary to Charcot deformity. Patient was resting comfortably in bed and denies of any acute overnight distress. She remains AAO x3. Dressing to Right foot remains clean, dry and intact. Patient denies of any pain to the site of ulceration. She denies n/f/v/d/c/sob. Objective - Vital Signs/Intake and Output Vital Signs (last 24 hours): Temp Pulse Resp BP Pulse Ox 97.9 F 64 20 126/66 100 09/12/16 07:51 09/12/16 08:44 09/12/16 07:51 09/12/16 08:44 09/12/16 07:51 - Medications Medications: Current Medications Amlodipine Besylate (Norvasc) 5 mg PO DAILY [facility] Last Admin: 09/11/16 08:56 Dose: 5 mg Aspirin (Ecotrin) 81 mg PO DAILY [facility] Last Admin: 09/11/16 08:54 Dose: 81 mg Bisoprolol Fumarate (Zebeta) 5 mg PO DAILY [facility] Last Admin: 09/11/16 08:58 Dose: 5 mg Clonidine HCl (Catapres) 0.1 mg PO DAILY [facility] Last Admin: 09/11/16 09:30 Dose: 0.1 mg Doxercalciferol (Hectorol) 2 mcg IV [facility] Last Admin: 09/10/16 12:56 Dose: 2 mcg Epoetin Isreal (Procrit) 10,000 unit IV [facility] Ferrous Sulfate (Feosol) 325 mg PO BIDWM [facility] Last Admin: 09/11/16 16:20 Dose: 325 mg Heparin Sodium (Porcine) (Heparin) 5,000 units SC Q12 [facility] PRN Reason: Protocol Last Admin: 09/11/16 21:45 Dose: 5,000 units Hydralazine HCl (Apresoline) 25 mg PO TID [facility] Last Admin: 09/12/16 08:44 Dose: Not Given Tigecycline 50 mg/ Sodium (Chloride) 100 mls @ 100 mls/hr IVPB Q12@0200,1400 [facility] Last Admin: 09/12/16 01:30 Dose: 100 mls/hr Insulin Human Regular (Humulin R) 0 units SC ACHS [facility] PRN Reason: Protocol Last Admin: 09/12/16 07:25 Dose: Not Given Metoclopramide HCl (Reglan) 10 mg IVPB Q6 PRN PRN Reason: Nausea/Vomiting Last Admin: 09/03/16 09:03 Dose: 10 mg Mupirocin (Bactroban Ointment) 1 applic TOP DAILY [facility] Last Admin: 09/12/16 08:45 Dose: 1 applic Ondansetron HCl (Zofran Inj) 4 mg IVP Q8 PRN PRN Reason: Nausea/Vomiting Last Admin: 09/04/16 16:45 Dose: 4 mg Pantoprazole Sodium (Protonix Ec Tab) 40 mg PO DAILY [facility] Last Admin: 09/11/16 08:55 Dose: 40 mg Risperidone (Risperdal Tab) 0.5 mg PO Q8 [facility] Last Admin: 09/12/16 08:46 Dose: 0.5 mg Sevelamer HCl (Renagel) 800 mg PO TID [facility] Last Admin: 09/12/16 08:45 Dose: 800 mg Vitamin B Complex/Vit C/Folic Acid (Nephro-Brit) 1 tab PO DAILY [facility] Last Admin: 09/11/16 08:58 Dose: 1 tab Zolpidem Tartrate (Ambien) 5 mg PO HS PRN PRN Reason: Insomnia Last Admin: 09/10/16 22:29 Dose: 5 mg - Labs Labs: 09/12/16 06:25 09/12/16 06:25 PT 13.3 SECONDS (9.6-11.2) H 09/07/16 11:39 INR 1.28 (0.92-1.08) H 09/07/16 11:39 APTT 26.6 SECONDS (23.3-32.5) 09/07/16 11:39 - Constitutional Appears: Well, Non-toxic, No Acute Distress - Extremities Exam Additional comments: Right foot exam: Dressing clean, dry, and intact. Derm: No open ulceration noted to plantar aspect of right midfoot. The previous open ulceration closed with hyperkeratotic tissue over it. No undermining. Localized hyperkeratotic tissue to maria m-wound border extending 2.5 cm circumferentially. no Probe to bone, no erythema, no purulence, no malodor. No active drainage present at this time. No erythema. No sign of infection is noted. Vascular: DP/PT pulses 1/4, CFT<3 seconds, skin temp normal Neuro: Protective sensation grossly diminished Ortho: Right plantar foot Charcot deformity with rocker bottom presentation, and plantar bony prominence - Neurological Exam Neurological Exam: Alert, Awake, Oriented x3 - Psychiatric Exam Psychiatric exam: Normal Affect, Normal Mood - Skin Skin Exam: Normal Color, Warm Assessment and Plan - Assessment and Plan (Free Text) Assessment: 60 year old female with Right foot plantar ulceration secondary to Charcot deformity. Plan: Patient seen and evaluated, discussed with attending Dr. Briseno. Labs and vitals reviewed; afebrile Right foot dressed with DSD. (Silvedene not used today) IV abx per primary service. No sign of infection noted from lower extremities Patient is stable from podiatry standpoint Podiatry will continue to follow while patient remains in house
[2016-09-12] MEDS: Multivitamin Vitamin B Complex (Nephro-Vite) Tab PO SCH (08:53)
[2016-09-12] MEDS ORDERED: EPOETIN ALFA 10,000 UNIT/ML ML IV SCH (09:00)
--- NOTE | 2016-09-12 09:58 | CP.PCM.PCO ---
Assessment & Plan - Assessment and Plan (Free Text) Assessment: a/p staph coag bacteremia, UTI, MDR patient will require a total of 5 more days of Tygacil 50 mg IVPB BID as per
--- NOTE | 2016-09-12 12:57 | CP.PCM.PN ---
Subjective - Date & Time of Evaluation Date of Evaluation: 09/12/16 Time of Evaluation: 08:00 - Subjective Subjective: improving on iv tygacil for transfer to [facility] on iv tygacil Objective - Vital Signs/Intake and Output Vital Signs (last 24 hours): Temp Pulse Resp BP Pulse Ox 97.9 F 74 20 126/74 100 09/12/16 07:51 09/12/16 12:27 09/12/16 07:51 09/12/16 12:27 09/12/16 07:51 - Medications Medications: Current Medications Amlodipine Besylate (Norvasc) 5 mg PO DAILY [facility] Last Admin: 09/12/16 08:51 Dose: Not Given Aspirin (Ecotrin) 81 mg PO DAILY [facility] Last Admin: 09/11/16 08:54 Dose: 81 mg Bisoprolol Fumarate (Zebeta) 5 mg PO DAILY [facility] Last Admin: 09/12/16 08:51 Dose: Not Given Clonidine HCl (Catapres) 0.1 mg PO DAILY [facility] Last Admin: 09/12/16 12:27 Dose: Not Given Doxercalciferol (Hectorol) [address] [facility] [place] Last Admin: 09/10/16 12:56 Dose: 2 mcg Epoetin Isreal (Procrit) 10,[address] [facility] Ferrous Sulfate (Feosol) 325 mg PO BIDWM [facility] Last Admin: 09/11/16 16:20 Dose: 325 mg Heparin Sodium (Porcine) (Heparin) 5,000 units SC Q12 [facility] PRN Reason: Protocol Last Admin: 09/12/16 09:00 Dose: Not Given Hydralazine HCl (Apresoline) 25 mg PO TID [facility] Last Admin: 09/12/16 08:44 Dose: Not Given Tigecycline 50 mg/ Sodium (Chloride) 100 mls @ 100 mls/hr IVPB Q12@0200,1400 [facility] Last Admin: 09/12/16 01:30 Dose: 100 mls/hr Insulin Human Regular (Humulin R) 0 units SC ACHS [facility] PRN Reason: Protocol Last Admin: 09/12/16 12:29 Dose: Not Given Metoclopramide HCl (Reglan) 10 mg IVPB Q6 PRN PRN Reason: Nausea/Vomiting Last Admin: 09/03/16 09:03 Dose: 10 mg Mupirocin (Bactroban Ointment) 1 applic TOP DAILY [facility] Last Admin: 09/12/16 08:45 Dose: 1 applic Ondansetron HCl (Zofran Inj) 4 mg IVP Q8 PRN PRN Reason: Nausea/Vomiting Last Admin: 09/04/16 16:45 Dose: 4 mg Pantoprazole Sodium (Protonix Ec Tab) 40 mg PO DAILY [facility] Last Admin: 09/11/16 08:55 Dose: 40 mg Risperidone (Risperdal Tab) 0.5 mg PO Q8 [facility] Last Admin: 09/12/16 08:46 Dose: 0.5 mg Sevelamer HCl (Renagel) 800 mg PO TID [facility] Last Admin: 09/12/16 08:45 Dose: 800 mg Vitamin B Complex/Vit C/Folic Acid (Nephro-Brit) 1 tab PO DAILY [facility] Last Admin: 09/12/16 08:53 Dose: 1 tab Zolpidem Tartrate (Ambien) 5 mg PO HS PRN PRN Reason: Insomnia Last Admin: 09/10/16 22:29 Dose: 5 mg - Labs Labs: 09/12/16 06:25 09/12/16 06:25 PT 13.3 SECONDS (9.6-11.2) H 09/07/16 11:39 INR 1.28 (0.92-1.08) H 09/07/16 11:39 APTT 26.6 SECONDS (23.3-32.5) 09/07/16 11:39 - Constitutional Appears: Non-toxic, Chronically Ill - Head Exam Head Exam: NORMOCEPHALIC - Eye Exam Eye Exam: absent: Scleral icterus - ENT Exam ENT Exam: Mucous Membranes Dry - Neck Exam Neck Exam: absent: Lymphadenopathy - Respiratory Exam Respiratory Exam: Decreased Breath Sounds, Rhonchi - Cardiovascular Exam Cardiovascular Exam: REGULAR RHYTHM, +S1, +S2 - GI/Abdominal Exam GI & Abdominal Exam: Distended, Soft. 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
[2016-09-12] MEDS: EPOETIN ALFA 10,000 UNIT/ML ML IV SCH (13:10)
[2016-09-12] MEDS: Doxercalciferol 4 mcg/2 ml Inj IV SCH (13:11)
[2016-09-12] MEDS: Pantoprazole 40 mg EC Tab PO SCH (13:18)
[2016-09-12 16:25] VITALS: BP 152/79; PULSE 65
[2016-09-12 16:36] VITALS: RESP 18; TEMP 97.8; O2SAT 99
--- NOTE | 2016-09-12 19:28 | DS ---
REASON FOR ADMISSION: This is a 60-year-old female with history of multiple medical problem s, presented and admitted for abdominal pain, generalized weakness and nausea secondary to urinary tr act infection. COURSE OF HOSPITALIZATION: The patient was admitted to medical floor initially by Dr. Ang, who was covering for de. Urinalysis showed Gram-negative rods and the patient was , had Klebsiella pne umoniae on 09/01 and on 09/06 the patient was having urinary retention and she again had Gram-negativ e rods. The patient has been on tigecycline. The patient had an ID consult done by Dr. Jackson. The patient was continued on hemodialysis during this hospital stay. The patient was started on physica l therapy and discharged to subacute rehabilitation at [place] to continue IV antibiotics for 5 m ore days. FINAL DIAGNOSES: 1. Symptomatic urinary tract infection, recurrent urinary retention secondary to neurogenic bladder. 2. Type 2 diabetes mellitus. 3. End-stage renal disease on hemodialysis. 4. Hypertension. 5. Charcot joints of the right foot. 6. Diabetic neuropathy. Ray Thibodeaux MD cc: [id number] TT: 09/12/2016 19:28:04 tereso
--- NOTE | 2016-09-12 19:37 | CP.PCM.PN ---
Subjective - Date & Time of Evaluation Date of Evaluation: 09/12/16 Time of Evaluation: 16:30 - Subjective Subjective: pt seen and examined, follow up consult is dictated #[id number] stable hd tx Objective - Vital Signs/Intake and Output Vital Signs (last 24 hours): Temp Pulse Resp BP Pulse Ox 97.8 F 65 18 152/79 H 99 09/12/16 16:35 09/12/16 16:35 09/12/16 16:35 09/12/16 16:35 09/12/16 16:35 - Labs Labs: 09/12/16 06:25 09/12/16 06:25 PT 13.3 SECONDS (9.6-11.2) H 09/07/16 11:39 INR 1.28 (0.92-1.08) H 09/07/16 11:39 APTT 26.6 SECONDS (23.3-32.5) 09/07/16 11:39
--- NOTE | 2016-09-12 20:47 | PN ---
DATE: 09/12/2016 The patient is located in room 655, bed 2. REQUESTED BY: Dr. Ray Thibdoeaux. REASON FOR FOLLOWUP: End-stage renal disease for continuation of the hemodialysis. HISTORY OF PRESENT ILLNESS: The patient is a 60-year-old elderly female with a history of l ongstanding hypertension, diabetes, psych disorder, end-stage renal disease, recurrent urinary tract infection, Charcot's right foot, who was admitted with weakness, dysuria and frequency and found to h ave gram-negative rods in the urine identified as Klebsiella pneumoniae with multidrug resistant orga nism and also found to have blood culture positive for Staph coag negative. The patient is on IV ant ibiotics. The patient is feeling better, not in acute distress. The patient underwent hemodialysis this afternoon. No chest pain, no palpitations, no fever, no cough. PHYSICAL EXAMINATION: VITAL SIGNS: As follows: Blood pressure 152/79, pulse 65, respiration 18, temperature 97.8. Height 5 feet 3 inches and weight is 162 pounds. GENERAL: The patient is a 60-year-old elderly female, moderately built, moderately nourished, not in any distress. HEENT: Pupils normal, reactive to light and accommodation. Conjunctivae pink. Sclerae anicteric. Tongue is moist. NECK: Trachea is midline. LUNGS: Symmetric on both sides. Bilateral breath sounds present. Clear on auscultation. CARDIOVASCULAR: Marble at the fifth intercostal space midclavicular line. S1 and S2 audible. No murm ur, no gallop. ABDOMEN: Normal in appearance, soft, tympanic. No guarding, no rigidity. No hepatosplenomegaly. CENTRAL NERVOUS SYSTEM: The patient is alert, awake, oriented x 3, nonfocal on examination. Cranial nerves II-XII grossly intact. Sensory and motor system is within normal limits. EXTREMITIES: No cyanosis, no clubbing, no edema. The patient has a dressing to the right foot. LABORATORY DATA: As of 09/12/2016: WBC 14.6, hemoglobin 9, hematocrit is 29, platelets 251. Sodium 134, potassium 5.8, chloride 97, CO2 of 23, BUN 65, creatinine 5.6 and glucose 111, calcium 9, total bilirubin 0.4, AST 28, ALT 24, alkaline phosphatase is 229, total protein 6.4, albumin is 2.9. CURRENT MEDICATIONS: Include as follows: Ambien 5 mg at bedtime, hydralazine 25 p.o. t.i.d., mupiro jes ointment topical daily, clonidine 0.1 p.o. daily, Ecotrin 81 mg daily, Feosol 325 mg p.o. b.i.d. Hectorol 2 mcg 3 times a week, Saturday, Saturday and Saturday. SubQ heparin 5000 q. 12 hours, Symlin for sliding scale, Nephro-Brit 1 tablet daily, Norvasc 5 mg daily. Procrit 10,000 units 3 time s a week. Protonix 40 mg p.o. daily, and Reglan 10 mg IV piggyback q. 6 hours, Renagel 800 mg p.o. t .i.d., Zebeta 5 mg p.o. daily, Zofran 4 mg IV q. 8 hours p.r.n. Urine culture repeat one as of 09/06 positive for gram-negative rods, less than 10,000 colony forming units, and blood culture x 2 n egative day #5 as of 09/06/2016. SUMMARY: The patient is a 60-year-old elderly female with a history of hypertension, diabet es, end-stage renal disease, psych disorder, recurrent urinary tract infection. 1. End-stage renal disease. Continue hemodialysis 3 times a week on Saturday, Saturday and Saturday. 2. Hyperkalemia secondary to renal failure and noncompliance with diet and advise low sodium, low po tassium diet. 3. Urinary tract infection. 4. Anemia secondary to renal failure. Continue Feosol, Nephro-Brit and Neupogen. 5. Status post Staphylococcus aureus sepsis. Repeat blood cultures are negative. Continue antibiot ics as per Dr. Thibodeaux. Thank you for allowing me to participate in your patient's care. Linda Bernal MD cc: [id number] TT: 09/12/2016 20:46:11 Confirmation # [id number] Dictation # [id number] mn
== END 2016-09-12 18:13 | DRG 853 ==
LOC: H.ER 22:22 → H.ERHOLD 09-02 02:09 → H.MEDSURG1 09-02 03:30
PROVIDERS: ADMIT Internal Medicine; ATTEND Internal Medicine
PROC: 0JBQ0ZZ Excision of Right Foot Subcutaneous Tissue and Fascia, Open Approach (ICD-10-PCS; 2016-09-04)
PROC: 5A1D60Z (ICD-10-PCS; principal; 2016-09-07)
PROC: 04HK33Z Insertion of Infusion Device into Right Femoral Artery, Percutaneous Approach (ICD-10-PCS; 2016-09-07)
DX: A41.1 Sepsis due to other specified staphylococcus (principal); N18.6 End stage renal disease; I13.2 Hypertensive heart and chronic kidney disease with heart failure and with stage 5 chronic kidney disease, or end stage renal disease; J15.0 Pneumonia due to Klebsiella pneumoniae; E11.22 Type 2 diabetes mellitus with diabetic chronic kidney disease; K31.84 Gastroparesis; J44.0 Chronic obstructive pulmonary disease with (acute) lower respiratory infection; E11.43 Type 2 diabetes mellitus with diabetic autonomic (poly)neuropathy; E11.621 Type 2 diabetes mellitus with foot ulcer; L97.419 Non-pressure chronic ulcer of right heel and midfoot with unspecified severity; N39.0 Urinary tract infection, site not specified; E11.610 Type 2 diabetes mellitus with diabetic neuropathic arthropathy; Z99.2 Dependence on renal dialysis; M14.671 Charcot's joint, right ankle and foot; E11.65 Type 2 diabetes mellitus with hyperglycemia; E78.00 Pure hypercholesterolemia, unspecified; J45.909 Unspecified asthma, uncomplicated; N31.9 Neuromuscular dysfunction of bladder, unspecified; F20.9 Schizophrenia, unspecified; E87.5 Hyperkalemia; Z91.14 Patient's other noncompliance with medication regimen; Z91.11 Patient's noncompliance with dietary regimen; Z16.24 Resistance to multiple antibiotics; E78.5 Hyperlipidemia, unspecified; F41.9 Anxiety disorder, unspecified; F31.9 Bipolar disorder, unspecified; D63.1 Anemia in chronic kidney disease; R33.8 Other retention of urine

== ENCOUNTER 2016-12-09 20:54 | Emergency (ER) | payer MEDICARE, OTHER ==
[2016-12-09 20:54] VITALS: BMI 29.2
[2016-12-09 21:04] VITALS: RESP 16
[2016-12-09] MEDS ORDERED: Sodium Chloride 0.9% 1,000 ML IV STA (22:06)
--- NOTE | 2016-12-09 22:11 | ED PDOC ---
HPI: General Adult Time Seen by Provider: 12/09/16 22:00 Chief Complaint (Nursing): Dizziness/Lightheaded Chief Complaint (Provider): Generalized Weakness History Per: Patient History/Exam Limitations: no limitations Current Symptoms Are (Timing): Still Present Severity: Moderate Additional Complaint(s): Shanel Mandel is a 61 y/o female, with a past medical history of End Stage Renal Disease, Hyperlipidemia, Congestive Heart Failure, Diabetes Mellitus, and Hypertension, presenting to the ER on 12/09/2016 with complaints of generalized weakness, dizziness, and two episodes of vomiting. Patient reports symptoms began this morning. Denies any associated fever or diarrhea. Patient states she get dialyzed every Saturday, Saturday, and Saturday with her last dialysis treatment two days ago. Past Medical History Reviewed: Historical Data, Nursing Documentation, Vital Signs Vital Signs: Last Vital Signs Temp 98.1 F 12/10/16 02:32 Pulse 63 12/10/16 02:32 Resp 16 12/10/16 02:32 BP 134/63 12/10/16 02:32 Pulse Ox 95 12/10/16 03:03 - Medical History PMH: Anemia, Anxiety, Asthma, Bipolar Disorder, Bronchitis, CHF, COPD, Depression, Diabetes, Fractures, HTN, Hypercholesterolemia, Hyperlipidemia, Peripheral Edema, Pneumonia, End Stage Renal Disease (MWF), Chronic Kidney Disease, Schizophrenia Denies: HIV, Kidney Stones - Surgical History Surgical History: Appendectomy, Hernia Repair (unknown), Tonsillectomy, C- Section Other surgeries: right foot surgery - Family History Family History: States: Unknown Family Hx - Social History Current smoker - smoking cessation education provided: No Alcohol: None Drugs: Denies - Immunization History Hx Tetanus Toxoid Vaccination: No Hx Influenza Vaccination: No Hx Pneumococcal Vaccination: No - Home Medications Home Medications: Ambulatory Orders Medication Instructions Recorded Aspirin [Ecotrin] 81 mg PO DAILY tabec 08/10/16 Bisoprolol [Zebeta] 5 mg PO DAILY tab 08/10/16 Sevelamer Carbonate [Renvela] 800 mg PO TID tab 08/10/16 Zolpidem [Ambien] 5 mg PO HS PRN #0 tab 08/10/16 amLODIPine [Norvasc] 5 mg PO DAILY tab 08/10/16 hydrALAZINE [Apresoline] 25 mg PO BID tab 08/10/16 risperiDONE [RisperDAL Tab] 0.5 mg PO Q8 tab 08/10/16 Pantoprazole Sodium [Protonix] 40 mg PO DAILY 09/02/16 cloNIDine [Catapres] 0.1 mg PO DAILY 09/02/16 Doxercalciferol [Hectorol] 2 mcg IV MWF vial 09/12/16 Epoetin Isreal [Procrit] 10,000 unit IV MWF ml 09/12/16 Ferrous Sulfate [Feosol] 325 mg PO BIDWM tab 09/12/16 Heparin 5,000 units SC Q12 vial 09/12/16 Insulin Human Regular [HumuLIN R] 0 units SC ACHS ml 09/12/16 Mupirocin 2% Ointment [Bactroban 1 applic TOP DAILY tube 09/12/16 Ointment] Tigecycline [Tygacil] 50 mg IV Q12 #10 vial 09/12/16 Vitamin B Complex/Vit C/Folic 1 tab PO DAILY tab 09/12/16 [Nephro-Brit] Darbepoetin Isreal [Aranesp (RENAL)] 60 mcg IVP ONCE 10/19/16 Iron Sucrose [Venofer] 50 mg IVP DAILY 10/19/16 - Allergies Allergies/Adverse Reactions: Allergies Allergy/AdvReac Type Severity Reaction Status Date / Time ciprofloxacin [From Cipro] Allergy RASH Verified 10/19/16 07:44 ciprofloxacin HCl Allergy RASH Verified 10/19/16 07:44 [From Cipro] shellfish derived Allergy RASH Verified 10/19/16 07:44 Review of Systems Constitutional: Positive for: Weakness. Negative for: Fever Gastrointestinal: Positive for: Vomiting. Negative for: Diarrhea Neurological: Positive for: Dizziness Physical Exam - Reviewed Nursing Documentation Reviewed: Yes Vital Signs Reviewed: Yes - Physical Exam Appears: Positive for: Non-toxic, No Acute Distress (appears weak ) Head Exam: Positive for: ATRAUMATIC, NORMOCEPHALIC Skin: Positive for: Normal Color. Negative for: Rash Eye Exam: Positive for: Normal appearance, EOMI, PERRL ENT: Positive for: Normal ENT Inspection. Negative for: Pharyngeal Erythema, Tonsillar Exudate, Tonsillar Swelling Neck: Positive for: Normal, Painless ROM, Supple Cardiovascular/Chest: Positive for: Regular Rate, Rhythm. Negative for: Murmur Respiratory: Positive for: Normal Breath Sounds. Negative for: Wheezing, Respiratory Distress Gastrointestinal/Abdominal: Positive for: Normal Exam, Soft. Negative for: Tenderness Extremity: Positive for: Normal ROM. Negative for: Deformity, Swelling Neurologic/Psych: Positive for: Alert, Oriented. Negative for: Motor/Sensory Deficits - Laboratory Results Result Diagrams: 12/10/16 01:30 12/09/16 22:37 - ECG ECG: Positive for: Interpreted By Me, Viewed By Me ECG Rhythm: Positive for: Sinus Rhythm (NSR at 67 bpm, right axis deviation, no ST elevation ) O2 Sat by Pulse Oximetry: 95 Medical Decision Making Medical Decision Makin:00 Initial Impression- 61 y/o female with generalized weakness Initial Plan * CMP * CBC w/ differential * Zofran 4 mg IVP * Sodium Chloride 1,000 ml IV * Re-evaluate 0100: Labs reviewed, slight leukocytosis noted. Patient does not make urine. Tolerated PO. 0219: Patient feels better and WBC count has gone down to 15.5. Patient is stable for d/c. Instructed to f/u with PCP tomorrow and go to dialysis tomorrow. Advised to return to the ED with any worsening or concerning symptoms. Documented by Pooja Macario and Mariia Agudelo acting as scribes for Haydee Carrillo MD. All medical record entries made by the Scribe were at my direction and personally dictated by me. I have reviewed the chart and agree that the record accurately reflects my personal performance of the history, physical exam, medical decision making, and the department course for this patient. I have also personally directed, reviewed, and agree with the discharge instructions and disposition. Disposition - Clinical Impression Clinical Impression: Weakness - Patient ED Disposition Is Patient to be Admitted: No Counseled Patient/Family Regarding: Studies Performed, Diagnosis, Need For Followup - Disposition Disposition: Routine/Home Disposition Time: 02:00 Condition: IMPROVED Additional Instructions: follow up with your primary doctor TOMORROW go to dialysis tomorrow return to the ED with any worsening or concerning symptoms. Instructions: Weakness (ED)
[2016-12-09 22:45] LABS: EOS # 0.1 K/uL (0.0-0.7); EOS % 0.6 % (0.0-4.0); LYMPH # 1.7 K/uL (1.0-4.3); LYMPH % 10.1 % (20.0-40.0); MEAN PLATELET VOLUME 10.2 fl (7.2-11.7); NRBC % 0.1 % (0.0-0.0); RED CELL DISTRIBUTION WIDTH 18.5 % (11.5-14.5); WHITE BLOOD COUNT 17.2 K/uL (4.8-10.8)
[2016-12-09 22:53] LABS: BILIRUBIN,TOTAL 0.7 mg/dl (0.2-1.3); CALCIUM 9.8 mg/dL (8.4-10.2); TOTAL PROTEIN 8.8 G/DL (6.3-8.2)
[2016-12-09 22:55] LABS: BASO # 0.2 K/uL (0.0-0.2); BASO % 0.9 % (0.0-2.0); HEMATOCRIT 35.8 % (34.0-47.0); MEAN CELL VOLUME 96.5 fl (81.0-99.0); MEAN CORPUSCULAR HEMOGLOBIN 31.6 pg (27.0-31.0); MEAN CORPUSCULAR HGB CONC 32.8 g/dL (33.0-37.0); MONO # 0.9 K/uL (0.0-0.8); MONO % 5.5 % (0.0-10.0); NEUT # 14.3 K/uL (1.8-7.0); NEUT % 82.9 % (50.0-75.0)
[2016-12-10 01:45] LABS: BASO # 0.2 K/uL (0.0-0.2); BASO % 1.5 % (0.0-2.0); EOS # 0.1 K/uL (0.0-0.7); EOS % 0.4 % (0.0-4.0); HEMATOCRIT 33.8 % (34.0-47.0); LYMPH # 1.5 K/uL (1.0-4.3); LYMPH % 9.7 % (20.0-40.0); MEAN CELL VOLUME 97.7 fl (81.0-99.0); MEAN CORPUSCULAR HEMOGLOBIN 31.3 pg (27.0-31.0); MONO # 0.9 K/uL (0.0-0.8); MONO % 5.7 % (0.0-10.0); NEUT # 12.8 K/uL (1.8-7.0); NEUT % 82.7 % (50.0-75.0); PLATELET COUNT 172 K/uL (130-400); RED CELL DISTRIBUTION WIDTH 18.2 % (11.5-14.5); WHITE BLOOD COUNT 15.5 K/uL (4.8-10.8)
[2016-12-10 02:34] VITALS: BP 134/63; PULSE 63; TEMP 98.1
[2016-12-10 02:48] LABS: BASOPHIL 1 % (0-2); NEUTROPHIL 85 % (42-75); TOTAL CELLS COUNTED 100
[2016-12-10 02:51] LABS: SPHEROCYTES SLIGHT
[2016-12-10 02:52] LABS: STOMATOCYTES SLIGHT
[2016-12-10 02:53] LABS: GIANT PLATELETS PRESENT
[2016-12-10 03:04] VITALS: O2SAT 95
--- NOTE | 2016-12-10 11:27 | RAD ---
HISTORY: leukocytosis COMPARISON: Chest x-ray performed 11/16/14 TECHNIQUE: Chest, one view. FINDINGS: Examination limited by habitus. LUNGS: No focal consolidation. Please note that chest x-ray has limited sensitivity for the detection of pulmonary masses. PLEURA: No significant pleural effusion identified. No definite pneumothorax . CARDIOVASCULAR: Cardiomegaly. Atherosclerotic calcification of the aorta. OSSEOUS STRUCTURES: Degenerative changes. Mild curvature of the thoracic spine convex to the right. VISUALIZED UPPER ABDOMEN: Mild elevation of the right hemidiaphragm. OTHER FINDINGS: None. IMPRESSION: Cardiomegaly. Atherosclerotic calcification of the aortic knob. No focal consolidation, significant pleural effusion, or definite pneumothorax identified.
--- NOTE | 2016-12-10 19:25 | CARD ---
APPROVED REPORT EKG Measurement Heart [id number] MI [id number] <Conclusion> Normal sinus rhythm Possible Left atrial enlargement Right axis deviation Anterior infarct, age undetermined Abnormal ECG
[2016-12-11 09:21] LABS: POTASSIUM 4.9 MMOL/L (3.6-5.0)
== END 2016-12-10 03:00 | disposition home or self-care (01) ==
LOC: H.ER 20:54
DX: R53.1 Weakness (principal); R42 Dizziness and giddiness; E11.22 Type 2 diabetes mellitus with diabetic chronic kidney disease; E78.00 Pure hypercholesterolemia, unspecified; F20.9 Schizophrenia, unspecified; F31.9 Bipolar disorder, unspecified; F41.9 Anxiety disorder, unspecified; I13.2 Hypertensive heart and chronic kidney disease with heart failure and with stage 5 chronic kidney disease, or end stage renal disease; J44.9 Chronic obstructive pulmonary disease, unspecified; Z79.82 Long term (current) use of aspirin; Z99.2 Dependence on renal dialysis
CPT/HCPCS: 71010; 80053; 82948; 85025; 93005; 96374; 99285; J2405; J7040